=== PATIENT | male | born 1960 | race Caucasian/White ===

== ENCOUNTER 2016-08-31 05:02 | Emergency (ER) | payer OTHER ==
[2016-08-31] MEDS ORDERED: Sodium Chloride 0.9% 1,000 ML IV ONE (05:10)
[2016-08-31] MEDS ORDERED: Sodium Chloride 0.9% 2.5 ML Syringe FLUSH PRN (05:10)
[2016-08-31] MEDS ORDERED: Sodium Chloride 0.9% 10 ML Syringe FLUSH PRN (05:10)
[2016-08-31 06:00] LABS: CHLORIDE,CL 105 mmol/L (98-110); SODIUM,NA 138 mmol/L (136-146)
--- NOTE | 2016-08-31 06:00 | EDM.PDOC ---
ED HPI GENERAL MEDICAL PROBLEM - General Chief Complaint: Abdominal Pain Stated Complaint: ABDOMINAL PAIN Time Seen by Provider: 08/31/16 05:07 Source of Information: Reports: Patient - History of Present Illness INITIAL COMMENTS - FREE TEXT/NARRATIVE: History of present illness: []Patient awoke at 2 AM with severe sharp left lower quadrant pain. He states he has bilateral hernias and always has some pain in the area that this is different. Patient also has a history of prostatitis and diverticulitis and states that it feels similar to diverticulitis. He states he feels pressure in his rectum but denies any difficulty urinating or blood in his urine. Eyes any fevers, chills, nausea or vomiting. Review of systems: As per history of present illness and below otherwise all systems reviewed and negative. Past medical history: As per history of present illness and as reviewed below otherwise noncontributory. Surgical history: As per history of present illness and as reviewed below otherwise noncontributory. Social history: No reported history of drug or alcohol abuse. Family history: As per history of present illness and as reviewed below otherwise noncontributory. Physical exam: General: Well developed, well nourished in NAD HEENT: Atraumatic, normocephalic, pupils reactive, negative for conjunctival pallor or scleral icterus, mucous membranes moist, throat clear, neck supple, nontender, trachea midline. Lungs: Clear to auscultation, breath sounds equal bilaterally, chest nontender. Heart: S1S2, regular, negative for clicks, rubs, or JVD. Abdomen: Soft, nondistended, tender in the left lower quadrant inguinal area out rebound or guarding there is no palpable mass. Negative for masses or hepatosplenomegaly. Negative for costovertebral tenderness. No hernia appreciated on exam Pelvis: Stable nontender. Genitourinary: Deferred. Rectal: Guaiac-negative no prostate tenderness or bogginess Extremities: Atraumatic, negative for cords or calf pain. Neurovascular unremarkable. Neuro: Awake, alert, oriented. Cranial nerves II through XII unremarkable. Cerebellum unremarkable. Motor and sensory unremarkable throughout. Exam nonfocal. Diagnostics: []Labs were done patient has an elevated white count 10,000 without a shift chemistries are normal except for lipase which is elevated at 171. Patient does not have the left upper quadrant pain on exam. CT shows diverticulosis without diverticulitis or abscess, no kidney stones were extracted uropathy. Therapeutics: []Patient was hydrated and given Toradol for pain Impression: []Left lower quadrant pain unclear etiology possible hernia Plan: []Follow-up with general surgery, tramadol for pain return if any symptoms change or worsen. Definitive disposition and diagnosis as appropriate pending reevaluation and review of above. Abdomen Pain Score (Numeric/FACES): 7 - Related Data Allergies Allergy/AdvReac Type Severity Reaction Status Date / Time Latex, Natural Rubber Allergy Blisters Verified 08/31/16 06:09 Home Meds: Home Meds Hydrochlorothiazide 50 mg PO DAILY 08/31/16 [History] Losartan [Cozaar] 50 mg PO DAILY 08/31/16 [History] Meloxicam 15 mg PO DAILY 08/31/16 [History] Past Medical History HEENT History: Reports: Impaired Vision Other HEENT History: wears glasses Cardiovascular History: Reports: Hypertension Respiratory History: Reports: None Gastrointestinal History: Reports: GERD Genitourinary History: Reports: None Musculoskeletal History: Reports: Arthritis, Back Pain, Chronic, Fracture Other Musculoskeletal History: arthritis in hands, hx of fx right leg and hands Neurological History: Reports: None Psychiatric History: Reports: None Endocrine/Metabolic History: Reports: Obesity/BMI 30+ Hematologic History: Reports: None Immunologic History: Reports: None Oncologic (Cancer) History: Reports: None Dermatologic History: Reports: None - Infectious Disease History Infectious Disease History: Reports: None - Past Surgical History Head Surgeries/Procedures: Reports: None Cardiovascular Surgical History: Reports: None Respiratory Surgical History: Reports: None GI Surgical History: Reports: Hernia, Inguinal Male Surgical History: Reports: Other (See Below) Other Male Surgeries/Procedures: testicle cyst removal Endocrine Surgical History: Reports: None Neurological Surgical History: Reports: None Oncologic Surgical History: Reports: None Dermatological Surgical History: Reports: None Social & Family History - Family History Family Medical History: Noncontributory - Tobacco Use Smoking Status *Q: Current Every Day Smoker Years of Tobacco use: 40 Packs/Tins Daily: 1.5 - Caffeine Use Caffeine Use: Reports: Coffee - Recreational Drug Use Recreational Drug Use: No ED ROS GENERAL - Review of Systems Review Of Systems: See Below (See history of present illness) ED EXAM, GI/ABD - Physical Exam Exam: See Below (See history of present illness) Course - Vital Signs Last Recorded V/S: Last Vital Signs Temp 36.4 C 08/31/16 05:46 Pulse 84 08/31/16 05:46 Resp 18 08/31/16 05:46 BP 148/92 H 08/31/16 05:46 Pulse Ox 96 08/31/16 05:46 - Orders/Labs/Meds Orders: Active Orders 24 hr Category Date Time Status Abdomen Pelvis w Cont [CT] Stat Exams 08/31/16 06:06 Taken Sodium Chloride 0.9% [Saline Flush] Med 08/31/16 05:10 Active 10 ml FLUSH ASDIRECTED PRN Sodium Chloride 0.9% [Saline Flush] Med 08/31/16 05:10 Active 2.5 ml FLUSH ASDIRECTED PRN Saline Lock Insert [OM.PC] Stat Oth 08/31/16 05:10 Ordered Medication Orders Sodium Chloride (Saline Flush) 10 ml FLUSH ASDIRECTED PRN PRN Reason: Keep Vein Open Last Admin: 08/31/16 05:56 Dose: 10 ml Sodium Chloride (Saline Flush) 2.5 ml FLUSH ASDIRECTED PRN PRN Reason: Keep Vein Open Last Admin: 08/31/16 05:57 Dose: 2.5 ml Labs: Laboratory Tests 08/31/16 08/31/16 08/31/16 Range/Units 05:31 05:31 05:54 WBC 14.05 H (4.0-11.0) K/uL RBC 4.69 (4.50-5.90) M/uL Hgb 15.6 (13.0-17.0) g/dL Hct 44.2 (38.0-50.0) % MCV 94.2 (80.0-98.0) fL MCH 33.3 H (27.0-32.0) pg MCHC 35.3 (31.0-37.0) g/dL RDW Std Deviation 43.3 (28.0-62.0) fl RDW Coeff of Zhen 13 (11.0-15.0) % Plt Count 257 (150-400) K/uL MPV 9.50 (7.40-12.00) fL Neut % (Auto) 74.4 (48.0-80.0) % Lymph % (Auto) 14.9 L (16.0-40.0) % [place] % (Auto) 10.2 (0.0-15.0) % Eos % (Auto) 0.4 (0.0-7.0) % Baso % (Auto) 0.1 (0.0-1.5) % Neut # (Auto) 10.4 H (1.4-5.7) K/uL Lymph # (Auto) 2.1 (0.6-2.4) K/uL [place] # (Auto) 1.4 H (0.0-0.8) K/uL Eos # (Auto) 0.1 (0.0-0.7) K/uL Baso # (Auto) 0.0 (0.0-0.1) K/uL Nucleated RBC % 0.0 /100WBC Nucleated RBCs # 0 K/uL Sodium 138 (136-146) mmol/L Potassium 4.0 (3.5-5.1) mmol/L Chloride 105 (98-110) mmol/L Carbon Dioxide 25 (21-31) mmol/L BUN 24 H (6.0-23.0) mg/dL Creatinine 1.2 (0.6-1.5) mg/dL Est Cr Clr Drug Dosing 71.82 mL/min Estimated GFR (MDRD) > 60.0 ml/min Glucose 126 H (60-110) mg/dL Calcium 9.2 (8.8-10.8) mg/dL Total Bilirubin 0.3 (0.1-1.5) mg/dL AST 26 (5-40) IU/L ALT 42 (8-54) IU/L Alkaline Phosphatase 70 (40-150) Total Protein 7.0 (6.0-8.0) g/dL Albumin 4.2 (3.5-5.0) g/dL Globulin 2.8 (2.0-3.5) g/dL Albumin/Globulin Ratio 1.5 (1.3-2.8) Lipase 171 H (7-80) U/L Urine Color YELLOW Urine Appearance CLEAR Urine pH 6.0 (5.0-8.0) Ur Specific [place] <= 1.005 (1.001-1.035) Urine Protein NEGATIVE (NEGATIVE) mg/dL Urine Glucose (UA) NEGATIVE (NEGATIVE) mg/dL Urine Ketones NEGATIVE (NEGATIVE) mg/dL Urine Occult Blood TRACE-INTACT (NEGATIVE) Urine Nitrite NEGATIVE (NEGATIVE) Urine Bilirubin NEGATIVE (NEGATIVE) Urine Urobilinogen 0.2 (<2.0) EU/dL Ur Leukocyte Esterase NEGATIVE (NEGATIVE) Urine RBC 0-1 (0-2/HPF) Urine WBC 0-1 (0-5/HPF) Ur Epithelial Cells RARE (NONE-FEW) Urine Bacteria RARE (NEGATIVE) Meds: Medications Generic Name Dose Route Start Last Admin Trade Name Freq PRN Reason Stop Dose Admin Sodium Chloride 10 ml 08/31/16 05:10 08/31/16 05:56 Saline Flush FLUSH 10 ml ASDIRECTED PRN Administration Keep Vein Open Sodium Chloride 2.5 ml 08/31/16 05:10 08/31/16 05:57 Saline Flush FLUSH 2.5 ml ASDIRECTED PRN Administration Keep Vein Open Discontinued Medications Generic Name Dose Route Start Last Admin Trade Name Freq PRN Reason Stop Dose Admin Sodium Chloride 1,000 mls @ 999 mls/hr 08/31/16 05:10 08/31/16 05:56 Normal Saline IV 08/31/16 06:10 999 mls/hr .Bolus ONE Administration Iopamidol 100 ml 08/31/16 06:43 08/31/16 06:43 Isovue-370 (76%) IVPUSH 08/31/16 06:44 100 ml ONETIME STA Administration Ketorolac Tromethamine 30 mg 08/31/16 07:02 08/31/16 07:22 Toradol IM 08/31/16 07:03 30 mg ONETIME ONE Administration Departure - Departure Time of Disposition: 07:32 Disposition: Home, Self-Care 01 Condition: Good Clinical Impression: Left lower quadrant pain - Discharge Information Referrals: PCP,None [Primary Care Provider] - Forms: ED Department Discharge Additional Instructions: The following information is given to patients seen in the emergency department who are being discharged to home. This information is to outline your options for follow-up care. We provide all patients seen in our emergency department with a follow-up referral. The need for follow-up, as well as the timing and circumstances, are variable depending upon the specifics of your emergency department visit. If you don't have a primary care physician on staff, we will provide you with a referral. We always advise you to contact your personal physician following an emergency department visit to inform them of the circumstance of the visit and for follow-up with them and/or the need for any referrals to a consulting specialist. The emergency department will also refer you to a specialist when appropriate. This referral assures that you have the opportunity for follow-up care with a specialist. All of these measure are taken in an effort to provide you with optimal care, which includes your follow-up. Under all circumstances we always encourage you to contact your private physician who remains a resource for coordinating your care. When calling for follow-up care, please make the office aware that this follow-up is from your recent emergency room visit. If for any reason you are refused follow-up, please contact the [facility] Emergency Department at and asked to speak to the emergency department charge nurse. Tramadol for pain follow-up with general surgery for evaluation of possible herniorrhaphy on the right and evaluation of left lower quadrant pain with unclear etiology here in the ED workup [facility] Specialty [facility] - General Surgery Professional Building [address] [place] [address], [address] [place] [address] - My Orders Last 24 Hours: My Active Orders 08/31/16 05:10 Sodium Chloride 0.9% [Saline Flush] 10 ml FLUSH ASDIRECTED PRN Sodium Chloride 0.9% [Saline Flush] 2.5 ml FLUSH ASDIRECTED PRN Saline Lock Insert [OM.PC] Stat 08/31/16 06:06 Abdomen Pelvis w Cont [CT] Stat - Assessment/Plan Last 24 Hours: My Active Orders 08/31/16 05:10 Sodium Chloride 0.9% [Saline Flush] 10 ml FLUSH ASDIRECTED PRN Sodium Chloride 0.9% [Saline Flush] 2.5 ml FLUSH ASDIRECTED PRN Saline Lock Insert [OM.PC] Stat 08/31/16 06:06 Abdomen Pelvis w Cont [CT] Stat
[2016-08-31] MEDS ORDERED: Iopamidol 755 Mg/ML 100 ML Bottle IVPUSH STA (06:43)
[2016-08-31] MEDS ORDERED: Ketorolac 30 MG/ML SDV IM ONE (07:02)
[2016-08-31 07:56] VITALS: BP 170/95
--- NOTE | 2016-08-31 13:17 | CT ---
EXAM DATE: 08/31/16 PATIENT'S AGE: 56 Patient: CARMELO JACKSON Facility: [place], [place] Site . Site : 1960 Study: CT Abdomen/Pelvis W CONT [id number]/18/2017 6:47:26 AM Ordering Physician: Randell Baltazar Final Report: INDICATION: Left lower quadrant abdominal pain since the morning. Comparison: CT abdomen and pelvis without and with intravenous contrast August 25, 2016. Technique: CT abdomen and pelvis with intravenous contrast; no oral contrast; coronal and sagittal reformats. Findings: No abnormal intra pulmonary nodular densities through the lung bases .no evidence of pleural effusion. Normal size cardiac silhouette without any evidence of pericardial effusion. No focal hepatic or splenic pathology. Fatty infiltration of the liver. 2.2 x 1.5 cm cyst identified involving segment 4 of the liver. No splenic pathology. No pancreatic pathology. No peripancreatic inflammatory changes. No evidence of pancreatic ductal dilatation. No calcifications identified within the pancreas. Status post cholecystectomy. Small periportal lymph nodes identified stable in appearance. No adrenal pathology. Symmetric perfusion of both the kidneys without any obstructive uropathy or perinephric pathology. No retroperitoneal lymphadenopathy. No CT evidence of diverticulitis or abscess involving the colon. Diverticulosis of the sigmoid colon. No pneumoperitoneum. CT study of the pelvis is unremarkable. The appendix is not clearly visualized; no inflammatory changes in the right lower quadrant of the abdomen. Impression: 1. Benign cyst in the liver. 2. Fatty infiltration of the liver. 3. Status post cholecystectomy. 4. Diverticulosis sigmoid colon without any CT evidence of diverticulitis or abscess. 5. No kidney stones or obstructive uropathy. 6. Fatty liver. Please note that all CT scans at this facility use dose modulation, iterative reconstruction, and/or weight-based dosing when appropriate to reduce radiation dose to as low as reasonably achievable. Dictated by Hans Garcia MD @ Aug 31 2016 7:03AM (Electronic Signature) Report Signed by Proxy. GARY
== END 2016-08-31 07:57 | disposition home or self-care (01) ==
LOC: MW.ED 05:02
DX: R10.32 Left lower quadrant pain (principal); I10 Essential (primary) hypertension; F17.210 Nicotine dependence, cigarettes, uncomplicated; K21.9 Gastro-esophageal reflux disease without esophagitis; E66.9 Obesity, unspecified; Z91.040 Latex allergy status; Z79.899 Other long term (current) drug therapy; Z68.35 Body mass index [BMI] 35.0-35.9, adult
CPT/HCPCS: 36415; 74177; 80053; 81001; 82272; 83690; 85025; 96360; 96372; 99284; J1885; J7040; Q9967

== ENCOUNTER 2016-09-01 19:54 | Emergency (ER) | payer OTHER ==
--- NOTE | 2016-09-01 20:34 | EDM.PDOC ---
ED HPI GENERAL MEDICAL PROBLEM - General Chief Complaint: Gastrointestinal Problem Stated Complaint: PAIN IN RECTUM Time Seen by Provider: 09/01/16 20:27 Source of Information: Reports: Patient History Limitations: Reports: No Limitations - History of Present Illness INITIAL COMMENTS - FREE TEXT/NARRATIVE: HISTORY AND PHYSICAL: []56-year-old male presenting with rectal pain History of Present Illness: []Patient was seen yesterday for what his suspicion was having a hernia and this was ruled out Today pain has appeared in the rectal area. No blood in the stool Review of Systems: As per history of present illness and below otherwise all systems reviewed and negative. Past medical history: As per history of present illness and as reviewed below otherwise noncontributory. Surgical history: As per history of present illness and as reviewed below otherwise noncontributory. Social history: No reported history of drug or alcohol abuse. Family history: As per history of present illness and as reviewed below otherwise noncontributory. Physical exam: Alert and oriented and answers questions appropriately HEENT: Atraumatic, normocehpalic, pupils reactive, negative for conjunctival pallor or scleral icterus, mucous membranes moist, throat clear, neck supple, nontender, trachea midline. Lungs: Clear to auscultation, breath sounds equal bilaterally, chest non tender. Heart: S1S2, regular, negative for clicks, rubs, or JVD. Abdomen: Soft, nondistended, nontender. Negative for masses or hepatossplenmegaly. Negative for costovertebral tenderness. Pelvis: Stable nontender. Genitourinary: Deferred. Rectal: [place] tissue present and tender upon light palpation Extremities: Atraumatic, negative for cords or calf pain. Neurovascular unremarkable. Neuro: Awake, alert, oriented. Cranial nerves II through XII unremarkable. Cerebellum unremarkable. Motor and sensory unremarkable throughout. Exam nonfocal. Diagnostics: [] Therapeutics: [] Impression: [Hemorrhoidal tissue/rectal pain] Plan: [Home Proctocort HC] Definitive disposition and diagnosis as appropriate pending reevaluation and review of above. Onset: Sudden Duration: Day(s):, Getting Worse Location: Reports: Other (rectum) Quality: Reports: Burning, Stabbing Severity: Moderate Improves with: Reports: None Worsens with: Reports: None Rectal Pain Score (Numeric/FACES): 8 - Related Data Allergies Allergy/AdvReac Type Severity Reaction Status Date / Time Latex, Natural Rubber Allergy Blisters Verified 09/01/16 20:10 Home Meds: Home Meds Hydrochlorothiazide 50 mg PO DAILY 08/31/16 [History] Losartan [Cozaar] 50 mg PO DAILY 08/31/16 [History] Meloxicam 15 mg PO DAILY 08/31/16 [History] traMADol [Ultram] 50 mg PO Q8H PRN #12 tablet 08/31/16 [Rx] Hydrocortisone [Proctocort] 28.35 gm RC QID PRN #1 cream..g. 09/01/16 [Rx] Past Medical History HEENT History: Reports: Impaired Vision Other HEENT History: wears glasses Cardiovascular History: Reports: Hypertension Respiratory History: Reports: None Gastrointestinal History: Reports: GERD Genitourinary History: Reports: None Musculoskeletal History: Reports: Arthritis, Back Pain, Chronic, Fracture Other Musculoskeletal History: arthritis in hands, hx of fx right leg and hands Neurological History: Reports: None Psychiatric History: Reports: None Endocrine/Metabolic History: Reports: Obesity/BMI 30+ Hematologic History: Reports: None Immunologic History: Reports: None Oncologic (Cancer) History: Reports: None Dermatologic History: Reports: None - Infectious Disease History Infectious Disease History: Reports: Influenza - Past Surgical History Head Surgeries/Procedures: Reports: None Cardiovascular Surgical History: Reports: None Respiratory Surgical History: Reports: None GI Surgical History: Reports: Hernia, Inguinal Male Surgical History: Reports: Other (See Below) Other Male Surgeries/Procedures: testicle cyst removal Endocrine Surgical History: Reports: None Neurological Surgical History: Reports: None Oncologic Surgical History: Reports: None Dermatological Surgical History: Reports: None Social & Family History - Family History Family Medical History: Noncontributory - Tobacco Use Smoking Status *Q: Current Every Day Smoker Years of Tobacco use: 40 Packs/Tins Daily: 1.5 - Caffeine Use Caffeine Use: Reports: Coffee - Recreational Drug Use Recreational Drug Use: No ED ROS GENERAL - Review of Systems Review Of Systems: ROS reveals no pertinent complaints other than HPI. ED EXAM, RENAL/ - Physical Exam Exam: See Below (See dictation) Course - Vital Signs Last Recorded V/S: Last Vital Signs Temp 36.4 C 09/01/16 20:10 Pulse 110 H 09/01/16 20:10 Resp 20 09/01/16 20:10 BP 143/85 H 09/01/16 20:10 Pulse Ox 98 09/01/16 20:10 Departure - Departure Time of Disposition: 20:30 Disposition: Home, Self-Care 01 Condition: Good Clinical Impression: Hemorrhoids, external - Discharge Information Prescriptions: Hydrocortisone [Proctocort] 28.35 gm RC QID PRN #1 cream..g. PRN Reason: Pain/Fever Forms: ED Department Discharge
== END 2016-09-01 20:38 | disposition home or self-care (01) ==
LOC: MW.ED 19:54
CPT/HCPCS: 99282; 99283

== ENCOUNTER 2016-09-06 06:53 | Emergency (ER) | payer OTHER ==
[2016-09-06] MEDS ORDERED: Morphine 2 MG/ML Syringe IVPUSH ONE (07:28)
--- NOTE | 2016-09-06 07:53 | EDM.PDOC ---
ED HPI GENERAL MEDICAL PROBLEM - General Chief Complaint: General Stated Complaint: FOLLOW UP/PAIN Time Seen by Provider: 09/06/16 06:55 Source of Information: Reports: Patient History Limitations: Reports: No Limitations - History of Present Illness INITIAL COMMENTS - FREE TEXT/NARRATIVE: History of present illness: []Patient complains of rectal pain. He has been seen here twice in the last week once with inguinal pain and the second with rectal pain. Patient awoke this morning and felt a hard lump on his left buttock cheek near his anus that is very tender. He states this was not there previously, although he has had rectal tenderness. He denies any fevers, chills, nausea or vomiting. He states that the rectal area hurts when he urinates. Review of systems: As per history of present illness and below otherwise all systems reviewed and negative. Past medical history: As per history of present illness and as reviewed below otherwise noncontributory. Surgical history: As per history of present illness and as reviewed below otherwise noncontributory. Social history: No reported history of drug or alcohol abuse. Family history: As per history of present illness and as reviewed below otherwise noncontributory. Physical exam: General: Well developed, well nourished in NAD HEENT: Atraumatic, normocephalic, pupils reactive, negative for conjunctival pallor or scleral icterus, mucous membranes moist, throat clear, neck supple, nontender, trachea midline. Lungs: Clear to auscultation, breath sounds equal bilaterally, chest nontender. Heart: S1S2, regular, negative for clicks, rubs, or JVD. Abdomen: Soft, nondistended, nontender. Negative for masses or hepatosplenomegaly. Negative for costovertebral tenderness. Pelvis: Stable nontender. Genitourinary: Deferred. Rectal: There is a 4 cm x 2 cm area of erythema and induration on his left perirectal area that is extending into his perineum. He has no testicular pain. Extremities: Atraumatic, negative for cords or calf pain. Neurovascular unremarkable. Neuro: Awake, alert, oriented. Cranial nerves II through XII unremarkable. Cerebellum unremarkable. Motor and sensory unremarkable throughout. Exam nonfocal. Diagnostics: []Labs ordered shows elevated white count 15k otherwise normal Therapeutics: []Patient was given pain medicine Impression: []Perirectal abscess Plan: []I consulted Dr. Gomez after doing patients exam as this patient has an appointment with him in the office at [address] Gomez requested he remain nothing by mouth and keep his office appointment this afternoon. Definitive disposition and diagnosis as appropriate pending reevaluation and review of above. rectum Pain Score (Numeric/FACES): 9 - Related Data Allergies Allergy/AdvReac Type Severity Reaction Status Date / Time Latex, Natural Rubber Allergy Blisters Verified 09/06/16 07:03 Home Meds: Home Meds Hydrochlorothiazide 50 mg PO DAILY 08/31/16 [History] Losartan [Cozaar] 50 mg PO DAILY 08/31/16 [History] Meloxicam 15 mg PO DAILY 08/31/16 [History] traMADol [Ultram] 50 mg PO Q8H PRN #12 tablet 08/31/16 [Rx] Hydrocortisone [Proctocort] 28.35 gm RC QID PRN #1 cream..g. 09/01/16 [Rx] Past Medical History HEENT History: Reports: Impaired Vision Other HEENT History: wears glasses Cardiovascular History: Reports: Hypertension Respiratory History: Reports: None Gastrointestinal History: Reports: GERD Genitourinary History: Reports: None Musculoskeletal History: Reports: Arthritis, Back Pain, Chronic, Fracture Other Musculoskeletal History: arthritis in hands, hx of fx right leg and hands Neurological History: Reports: None Psychiatric History: Reports: None Endocrine/Metabolic History: Reports: Obesity/BMI 30+ Hematologic History: Reports: None Immunologic History: Reports: None Oncologic (Cancer) History: Reports: None Dermatologic History: Reports: None - Infectious Disease History Infectious Disease History: Reports: Influenza - Past Surgical History Head Surgeries/Procedures: Reports: None Cardiovascular Surgical History: Reports: None Respiratory Surgical History: Reports: None GI Surgical History: Reports: Hernia, Inguinal Male Surgical History: Reports: Other (See Below) Other Male Surgeries/Procedures: testicle cyst removal Endocrine Surgical History: Reports: None Neurological Surgical History: Reports: None Oncologic Surgical History: Reports: None Dermatological Surgical History: Reports: None Social & Family History - Family History Family Medical History: Noncontributory - Tobacco Use Smoking Status *Q: Current Every Day Smoker Years of Tobacco use: 40 Packs/Tins Daily: 1 - Caffeine Use Caffeine Use: Reports: Coffee Caffeine Use Comment: 3 cups a daily - Recreational Drug Use Recreational Drug Use: No ED ROS GENERAL - Review of Systems Review Of Systems: See Below ED EXAM, GENERAL - Physical Exam Exam: See Below (See history of present illness) Course - Vital Signs Last Recorded V/S: Last Vital Signs Temp 36.1 C 09/06/16 07:06 Pulse 91 09/06/16 08:50 Resp 18 09/06/16 08:50 BP 145/90 H 09/06/16 08:50 Pulse Ox 97 09/06/16 08:50 - Orders/Labs/Meds Orders: Active Orders 24 hr Category Date Time Status CULTURE BLOOD [BC] Stat Lab 09/06/16 07:35 Received CULTURE BLOOD [BC] Stat Lab 09/06/16 07:47 Received Blood Culture x2 Reflex Set [OM.PC] Stat Oth 09/06/16 07:29 Ordered Saline Lock Insert [OM.PC] Stat Oth 09/06/16 07:28 Ordered Labs: Laboratory Tests 09/06/16 09/06/16 09/06/16 Range/Units 07:47 07:47 07:47 WBC 15.11 H (4.0-11.0) K/uL RBC 4.92 (4.50-5.90) M/uL Hgb 16.4 (13.0-17.0) g/dL Hct 45.2 (38.0-50.0) % MCV 91.9 (80.0-98.0) fL MCH 33.3 H (27.0-32.0) pg MCHC 36.3 (31.0-37.0) g/dL RDW Std Deviation 40.1 (28.0-62.0) fl RDW Coeff of Zhen 12 (11.0-15.0) % Plt Count 292 (150-400) K/uL MPV 9.50 (7.40-12.00) fL Neut % (Auto) 77.3 (48.0-80.0) % Lymph % (Auto) 10.9 L (16.0-40.0) % [place] % (Auto) 11.6 (0.0-15.0) % Eos % (Auto) 0.1 (0.0-7.0) % Baso % (Auto) 0.1 (0.0-1.5) % Neut # (Auto) 11.7 H (1.4-5.7) K/uL Lymph # (Auto) 1.6 (0.6-2.4) K/uL [place] # (Auto) 1.8 H (0.0-0.8) K/uL Eos # (Auto) 0.0 (0.0-0.7) K/uL Baso # (Auto) 0.0 (0.0-0.1) K/uL Nucleated RBC % 0.0 /100WBC Nucleated RBCs # 0 K/uL INR 1.04 (0.86-1.11) APTT 32.6 H (18.6-31.3) SEC Lactate (0.20-2.00) mmol/L Sodium 135 L (136-146) mmol/L Potassium 3.2 L (3.5-5.1) mmol/L Chloride 99 (98-110) mmol/L Carbon Dioxide 24 (21-31) mmol/L BUN 17 (6.0-23.0) mg/dL Creatinine 1.1 (0.6-1.5) mg/dL Est Cr Clr Drug Dosing 78.35 mL/min Estimated GFR (MDRD) > 60.0 ml/min Glucose 119 H (60-110) mg/dL Calcium 9.3 (8.8-10.8) mg/dL 09/06/16 Range/Units 08:19 WBC (4.0-11.0) K/uL RBC (4.50-5.90) M/uL Hgb (13.0-17.0) g/dL Hct (38.0-50.0) % MCV (80.0-98.0) fL MCH (27.0-32.0) pg MCHC (31.0-37.0) g/dL RDW Std Deviation (28.0-62.0) fl RDW Coeff of Zhen (11.0-15.0) % Plt Count (150-400) K/uL MPV (7.40-12.00) fL Neut % (Auto) (48.0-80.0) % Lymph % (Auto) (16.0-40.0) % [place] % (Auto) (0.0-15.0) % Eos % (Auto) (0.0-7.0) % Baso % (Auto) (0.0-1.5) % Neut # (Auto) (1.4-5.7) K/uL Lymph # (Auto) (0.6-2.4) K/uL [place] # (Auto) (0.0-0.8) K/uL Eos # (Auto) (0.0-0.7) K/uL Baso # (Auto) (0.0-0.1) K/uL Nucleated RBC % /100WBC Nucleated RBCs # K/uL INR (0.86-1.11) APTT (18.6-31.3) SEC Lactate 1.6 (0.20-2.00) mmol/L Sodium (136-146) mmol/L Potassium (3.5-5.1) mmol/L Chloride (98-110) mmol/L Carbon Dioxide (21-31) mmol/L BUN (6.0-23.0) mg/dL Creatinine (0.6-1.5) mg/dL Est Cr Clr Drug Dosing mL/min Estimated GFR (MDRD) ml/min Glucose (60-110) mg/dL Calcium (8.8-10.8) mg/dL Meds: Medications Discontinued Medications Generic Name Dose Route Start Last Admin Trade Name Freq PRN Reason Stop Dose Admin Morphine Sulfate 2 mg 09/06/16 07:28 09/06/16 07:49 Morphine IVPUSH 09/06/16 07:29 2 mg ONETIME ONE Administration Departure - Departure Time of Disposition: 11:44 Disposition: Home, Self-Care 01 Condition: Good Clinical Impression: Perirectal abscess - Discharge Information Instructions: Perirectal Abscess Referrals: Miguel Gomez MD [Physician] - PCP,None [Primary Care Provider] - Forms: ED Department Discharge Care Plan Goals: Follow Up Appointment with Dr. Gomez at 10 am today in the [facility]. - My Orders Last 24 Hours: My Active Orders 09/06/16 07:28 Saline Lock Insert [OM.PC] Stat 09/06/16 07:29 Blood Culture x2 Reflex Set [OM.PC] Stat 09/06/16 07:35 CULTURE BLOOD [BC] Stat 09/06/16 07:47 CULTURE BLOOD [BC] Stat - Assessment/Plan Last 24 Hours: My Active Orders 09/06/16 07:28 Saline Lock Insert [OM.PC] Stat 09/06/16 07:29 Blood Culture x2 Reflex Set [OM.PC] Stat 09/06/16 07:35 CULTURE BLOOD [BC] Stat 09/06/16 07:47 CULTURE BLOOD [BC] Stat
[2016-09-06 08:24] LABS: CHLORIDE,CL 99 mmol/L (98-110); SODIUM,NA 135 mmol/L (136-146)
[2016-09-06 08:56] VITALS: BP 145/90
== END 2016-09-06 08:50 | disposition home or self-care (01) ==
LOC: MW.ED 06:53
DX: K61.1 Rectal abscess (principal); I10 Essential (primary) hypertension; K21.9 Gastro-esophageal reflux disease without esophagitis; E66.9 Obesity, unspecified; F17.210 Nicotine dependence, cigarettes, uncomplicated; Z91.040 Latex allergy status; Z79.899 Other long term (current) drug therapy
CPT/HCPCS: 36415; 80048; 83605; 85025; 85610; 85730; 87040; 96374; 99283; J2270; 99284

== ENCOUNTER 2016-09-09 11:33 | Day surgery (SDC) | payer OTHER ==
[~2016-09-09 11:33] MED LIST: Bupivacaine 0.25%/EPINEPHrine 1:200,000 10 ML SDV ONE; Lactated Ringers 1,000 ML IV SCH
--- NOTE | 2016-09-09 12:25 | PCM.PREANE ---
Preanesthetic Assessment - Anesthesia/Transfusion/Family Hx Anesthesia History: Prior Anesthesia Without Reaction Family History of Anesthesia Reaction: No Transfusion History: No Prior Transfusion(s) Intubation History: Unknown - Review of Systems General: No Symptoms Pulmonary: No Symptoms Cardiovascular: No Symptoms Gastrointestinal: No Symptoms Neurological: No Symptoms Other: Reports: None - Physical Assessment O2 Sat by Pulse Oximetry: 99 Respiratory Rate: 16 Vital Signs: Last Vital Signs Temp 36.0 C 09/09/16 12:18 Pulse 101 H 09/09/16 12:18 Resp 16 09/09/16 12:18 BP 142/85 H 09/09/16 12:18 Pulse Ox 99 09/09/16 12:18 Height: 1.78 m Weight: 108 kg ASA Class: 2 Mental Status: Alert & Oriented x3 Airway Class: Mallampati = 2 Dentition: Reports: Normal Dentition Thyro-Mental Finger Breadths: 3 Mouth Opening Finger Breadths: 3 ROM/Head Extension: Full Lungs: Clear to Auscultation, Normal Respiratory Effort Cardiovascular: Regular Rate, Regular Rhythm - Allergies Allergies/Adverse Reactions: Allergies Allergy/AdvReac Type Severity Reaction Status Date / Time Latex, Natural Rubber Allergy Blisters Verified 09/06/16 07:03 - Blood Blood Available: No - Anesthesia Plan Pre-Op Medication Ordered: None - Acknowledgements Anesthesia Type Planned: General Anesthesia Pt an Appropriate Candidate for the Planned Anesthesia: Yes Alternatives and Risks of Anesthesia Discussed w Pt/Guardian: Yes Pt/Guardian Understands and Agrees with Anesthesia Plan: Yes PreAnesthesia Questionnaire HEENT History: Reports: Impaired Vision Other HEENT History: wears glasses Cardiovascular History: Reports: Hypertension, Other (See Below) (h/o high cholersterol, now ok without medications, questionable h/o TIA with weakness in lt. arm> 10 years ago) Respiratory History: Reports: None Gastrointestinal History: Reports: None Genitourinary History: Reports: BPH Musculoskeletal History: Reports: Arthritis, Back Pain, Chronic, Fracture Other Musculoskeletal History: arthritis in hands, hx of fx right leg and hands Neurological History: Reports: None Psychiatric History: Reports: None Endocrine/Metabolic History: Reports: Obesity/BMI 30+ Hematologic History: Reports: None Immunologic History: Reports: None Oncologic (Cancer) History: Reports: None Dermatologic History: Reports: Other (See Below) (perirectal abscess) - Infectious Disease History Infectious Disease History: Reports: Influenza - Past Surgical History Head Surgeries/Procedures: Reports: None HEENT Surgical History: Reports: Oral Surgery Cardiovascular Surgical History: Reports: None Respiratory Surgical History: Reports: None GI Surgical History: Reports: Cholecystectomy, Hernia, Inguinal (rt. inguinal hernia x4) Other GI Surgeries/Procedures: inguinal hernia repair x4 Male Surgical History: Reports: Other (See Below) Other Male Surgeries/Procedures: testicle cyst removal Endocrine Surgical History: Reports: None Neurological Surgical History: Reports: None Musculoskeletal Surgical History: Reports: ORIF Other Musculoskeletal Surgeries/Procedures:: ORIF right ankle Oncologic Surgical History: Reports: None Dermatological Surgical History: Reports: None - SUBSTANCE USE Smoking Status *Q: Current Every Day Smoker (1-2 ppd) Tobacco Use Within Last Twelve Months: Cigarettes Recreational Drug Use History: No - HOME MEDS Home Medications: Home Meds Hydrochlorothiazide 50 mg PO DAILY 08/31/16 [History] Losartan [Cozaar] 50 mg PO DAILY 08/31/16 [History] Meloxicam 15 mg PO DAILY 08/31/16 [History] traMADol [Ultram] 50 mg PO Q8H PRN #12 tablet 08/31/16 [Rx] Hydrocortisone [Proctocort] 28.35 gm RC QID PRN #1 cream..g. 09/01/16 [Rx] Clindamycin HCl 300 mg PO QID 09/08/16 [History] oxyCODONE HCl/Acetaminophen [Percocet 5-325 mg Tablet] 1 tab PO ASDIRECTED PRN 09/08/16 [History] - CURRENT (IN HOUSE) MEDS Current Meds: Current Medications Lactated Ringer's (Ringers, Lactated) 1,000 mls @ 125 mls/hr IV ASDIRECTED [facility] Last Admin: 09/09/16 12:16 Dose: 125 mls/hr Lactated Ringer's (Ringers, Lactated) 1,000 mls @ 125 mls/hr IV ASDIRECTED [facility] Discontinued Medications Bupivacaine HCl/Epinephrine Bitart (Marcaine 0.25%/Epinephrine 1:200,000) Confirm Administered Dose 20 ml .ROUTE .STK-MED ONE Stop: 09/09/16 10:11
[2016-09-09] MEDS ORDERED: Propofol 200 MG/20 ML SDV ONE ×2 (12:34→13:55)
[2016-09-09] MEDS ORDERED: Midazolam 1 MG/ML 2 ML SDV ONE (12:34)
[2016-09-09] MEDS ORDERED: fentaNYL 250 MCG/5 ML SDV ONE (12:34)
[2016-09-09] MEDS ORDERED: fentaNYL 100 MCG/2 ML SDV IVPUSH PRN (14:16)
--- NOTE | 2016-09-09 15:05 | PCM.POSTAN ---
POST ANESTHESIA ASSESSMENT - MENTAL STATUS Mental Status: Alert, Oriented - RESPIRATORY Respiratory Status: respiratory rate WNL, Airway Patent, O2 Saturation Stable - CARDIOVASCULAR CV Status: Pulse Rate WNL, Blood Pressure Stable - GASTROINTESTINAL GI Status: No Symptoms - PAIN Pain Score: 3 - POST OP HYDRATION Hydration Status: Adequate & Stable
--- NOTE | 2016-09-09 15:05 | PCM48HPAN ---
Post Anesthesia Note - EVALUATION WITHIN 48HRS OF ANESTHETIC Vital Signs in Normal Range: Yes Patient Participated in Evaluation: Yes Respiratory Function Stable: Yes Airway Patent: Yes Cardiovascular Function Stable: Yes Hydration Status Stable: Yes Pain Control Satisfactory: Yes Nausea and Vomiting Control Satisfactory: Yes Mental Status Recovered: Yes
[2016-09-09 16:00] VITALS: BP 143/80
--- NOTE | 2016-09-09 20:35 | OR ---
SURGEON: Miguel Gomez MD DATE OF PROCEDURE: 09/09/2016 PREOPERATIVE DIAGNOSIS: Perirectal abscess. POSTOPERATIVE DIAGNOSIS: Perirectal abscess. PROCEDURE PERFORMED: Incision and drainage. COMPLICATIONS: None. FINDINGS: Large amount close to about one quarter can of soda of purulent foul-smelling necrotic liquid out from the anal opening at 7 o'clock when in a prone position. PROCEDURE IN DETAIL: The patient was taken to the operating room, placed in a supine position. Upon induction of general endotracheal anesthesia, the patient was repositioned in prone position, and time-out was being called, patient identified, procedure identified, and the patient was then prepped and draped in a sterile fashion. After assessment of appropriate landmark, using an #11 blade a very shallow jere on top of the elevation, which is a 7 o'clock on anal opening and resulted in gush of foul-smelling liquefied necrosis and followed by using surgeon's finger to dislodge all the innoculation, followed extensive irrigation and the wound was packed with 1/2 iodoform gauze and followed appropriate dressing. The patient was then repositioned in the supine position and awakened and extubated and transferred to recovery room in hemodynamically stable condition. The patient tolerated the procedure well. There were no intraoperative complications. Dr. Gomez was present throughout the whole procedure. As always, thank you for the kind referral. LINDA SALGADO /[id number] MTDD
== END 2016-09-09 15:35 | disposition home or self-care (01) ==
LOC: MW.SDS 11:33
PROVIDERS: ATTEND Surgery
PROC: 0D9P0ZZ Drainage of Rectum, Open Approach (ICD-10-PCS; principal; 2016-09-09)
DX: K61.1 Rectal abscess (principal); M19.90 Unspecified osteoarthritis, unspecified site; Z91.040 Latex allergy status; Z79.2 Long term (current) use of antibiotics; Z79.899 Other long term (current) drug therapy; E78.00 Pure hypercholesterolemia, unspecified; Z86.73 Personal history of transient ischemic attack (TIA), and cerebral infarction without residual deficits; Z98.890 Other specified postprocedural states; F17.210 Nicotine dependence, cigarettes, uncomplicated
CPT/HCPCS: 46040; 87070; 87075; 87205; J2250; J3010; J7120; 00902; 87077; 87186; J2704

== ENCOUNTER 2016-09-11 13:10 | Emergency (ER) | payer OTHER ==
[2016-09-11 13:44] VITALS: BP 160/74
== END 2016-09-11 14:05 | disposition left against medical advice (07) ==
LOC: MW.ED 13:10
DX: Z53.21 Procedure and treatment not carried out due to patient leaving prior to being seen by health care provider (principal)

== ENCOUNTER 2016-09-11 22:47 | Emergency (ER) | payer OTHER | END 2016-09-11 22:50 | disposition home or self-care (01) | LOC: MW.ED 22:47 | DX: Z53.21 Procedure and treatment not carried out due to patient leaving prior to being seen by health care provider (principal) ==

== ENCOUNTER 2016-09-25 10:15 | Emergency (ER) | payer OTHER ==
--- NOTE | 2016-09-25 10:45 | EDM.PDOC ---
ED HPI GENERAL MEDICAL PROBLEM - General Chief Complaint: Genitourinary Problem Stated Complaint: PAIN Time Seen by Provider: 09/25/16 10:25 Source of Information: Reports: Patient History Limitations: Reports: No Limitations - History of Present Illness INITIAL COMMENTS - FREE TEXT/NARRATIVE: HISTORY AND PHYSICAL: History of present illness: [Patient comes to the emergency room with complaints of anal pain. He had surgery by Dr. Gomez on September 09 for a perianal abscess and was prescribed clindamycin which he completed on September 22. Feels that he's been doing very well and has been pain-free until he woke up this morning. He states that he woke up this morning with pain in his left anal area near the site of the incision. Dr. Gomez apparently advised him to notify him immediately and resume antibiotics if pain recurred. Dr. Gomez is not on-call this weekend and so patient reports the ER for evaluation. States that the pain is near the area where the previous abscess was located. The pain is similar as it was prior to surgery but less intense. Has not appreciated any significant swelling and has had no drainage from the area. He denies fever and chills. No abdominal pain nausea or vomiting. No body aches, muscle or joint aches or pains.] Review of systems: As per history of present illness and below otherwise all systems reviewed and negative. Past medical history: As per history of present illness and as reviewed below otherwise noncontributory. Surgical history: As per history of present illness and as reviewed below otherwise noncontributory. Social history: No reported history of drug or alcohol abuse. Family history: As per history of present illness and as reviewed below otherwise noncontributory. Physical exam: General: Well developed, Well nourished male in no acute distress. Smells heavily of tobacco smoke. Vitals reviewed by this provider. HEENT: Atraumatic, normocephalic. Rectal: Normal appearing, good sphincter tone. No incision or scarring is appreciated to radial anal folds. No area of fluctuance or apparent abscess. Neuro: Awake, alert, oriented. Motor and sensory unremarkable throughout. Exam nonfocal. Impression: [Rectal pain Status post perianal abscess surgery] Plan: [Dr. Gomez's office notes aren't available for review today. Dr. Gomez is not on-call this weekend. Will treat patient with antibiotic until he can follow-up with Dr. Gomez early next week. Rx written for Augmentin 875 mg #14 take 1 by mouth twice a day with food 0 refills. The patient states that he has pain medication at home. He is in agreement with today's plan. All of his questions are answered and concerns are addressed. Of note, BP improves prior to ER discharge. See vitals. ] Definitive disposition and diagnosis as appropriate pending reevaluation and review of above. Groin Pain Score (Numeric/FACES): 4 - Related Data Allergies Allergy/AdvReac Type Severity Reaction Status Date / Time Latex, Natural Rubber Allergy Blisters Verified 09/11/16 13:41 Home Meds: Home Meds Hydrochlorothiazide 50 mg PO DAILY 08/31/16 [History] Losartan [Cozaar] 50 mg PO DAILY 08/31/16 [History] Meloxicam 15 mg PO DAILY 08/31/16 [History] traMADol [Ultram] 50 mg PO Q8H PRN #12 tablet 08/31/16 [Rx] Hydrocortisone [Proctocort] 28.35 gm RC QID PRN #1 cream..g. 09/01/16 [Rx] Clindamycin HCl 300 mg PO QID 09/08/16 [History] oxyCODONE HCl/Acetaminophen [Percocet 5-325 mg Tablet] 1 tab PO ASDIRECTED PRN 09/08/16 [History] Past Medical History HEENT History: Reports: Impaired Vision Other HEENT History: wears glasses Cardiovascular History: Reports: Hypertension Respiratory History: Reports: None Gastrointestinal History: Reports: None Genitourinary History: Reports: BPH Musculoskeletal History: Reports: Arthritis, Back Pain, Chronic, Fracture Other Musculoskeletal History: arthritis in hands, hx of fx right leg and hands Neurological History: Reports: None Psychiatric History: Reports: None Endocrine/Metabolic History: Reports: Obesity/BMI 30+ Hematologic History: Reports: None Immunologic History: Reports: None Oncologic (Cancer) History: Reports: None Dermatologic History: Reports: Other (See Below) - Infectious Disease History Infectious Disease History: Reports: Influenza - Past Surgical History Head Surgeries/Procedures: Reports: None HEENT Surgical History: Reports: Oral Surgery Cardiovascular Surgical History: Reports: None Respiratory Surgical History: Reports: None GI Surgical History: Reports: Cholecystectomy, Hernia, Inguinal Other GI Surgeries/Procedures: inguinal hernia repair x4 Male Surgical History: Reports: Other (See Below) Other Male Surgeries/Procedures: testicle cyst removal Endocrine Surgical History: Reports: None Neurological Surgical History: Reports: None Musculoskeletal Surgical History: Reports: ORIF Other Musculoskeletal Surgeries/Procedures:: ORIF right ankle Oncologic Surgical History: Reports: None Dermatological Surgical History: Reports: None Social & Family History - Family History Family Medical History: Noncontributory - Tobacco Use Smoking Status *Q: Current Every Day Smoker Years of Tobacco use: 40 Packs/Tins Daily: 1 - Caffeine Use Caffeine Use: Reports: Coffee Caffeine Use Comment: 3 cups a daily - Recreational Drug Use Recreational Drug Use: No ED ROS GENERAL - Review of Systems Review Of Systems: ROS reveals no pertinent complaints other than HPI. ED EXAM, GI/ABD - Physical Exam Exam: See Below Course - Vital Signs Last Recorded V/S: Last Vital Signs Temp 97.6 F 09/25/16 10:55 Pulse 100 09/25/16 10:55 Resp 18 09/25/16 10:55 BP 182/88 H 09/25/16 10:55 Pulse Ox 98 09/25/16 10:55 Departure - Departure Time of Disposition: 10:45 Disposition: Home, Self-Care 01 Condition: Good Clinical Impression: Perirectal abscess - Discharge Information Instructions: Perirectal Abscess Referrals: PCP,None [Primary Care Provider] - Forms: ED Department Discharge Additional Instructions: The following information is given to patients seen in the emergency department who are being discharged to home. This information is to outline your options for follow-up care. We provide all patients seen in our emergency department with a follow-up referral. The need for follow-up, as well as the timing and circumstances, are variable depending upon the specifics of your emergency department visit. If you don't have a primary care physician on staff, we will provide you with a referral. We always advise you to contact your personal physician following an emergency department visit to inform them of the circumstance of the visit and for follow-up with them and/or the need for any referrals to a consulting specialist. The emergency department will also refer you to a specialist when appropriate. This referral assures that you have the opportunity for follow-up care with a specialist. All of these measure are taken in an effort to provide you with optimal care, which includes your follow-up. Under all circumstances we always encourage you to contact your private physician who remains a resource for coordinating your care. When calling for follow-up care, please make the office aware that this follow-up is from your recent emergency room visit. If for any reason you are refused follow-up, please contact the [facility] emergency department at and asked to speak to the emergency department charge nurse. [facility] Special[facility]- General Surgery Professional Building [address] [place] [address], [address] [place] [address] Gomez first thing Tuesday morning to let him know about ER visit and antibiotic prescription. Follow-up as Dr. Gomez requests. Take antibiotics as prescribed. Return to ER as needed as discussed.
[2016-09-25 14:04] VITALS: BP 182/88
== END 2016-09-25 10:56 | disposition home or self-care (01) ==
LOC: MW.ED 10:15
DX: K61.1 Rectal abscess (principal); F17.210 Nicotine dependence, cigarettes, uncomplicated; I10 Essential (primary) hypertension; E66.9 Obesity, unspecified; Z79.899 Other long term (current) drug therapy; Z90.49 Acquired absence of other specified parts of digestive tract; Z68.34 Body mass index [BMI] 34.0-34.9, adult
CPT/HCPCS: 99282

== ENCOUNTER 2017-06-08 15:20 | Emergency (ER) | payer OTHER ==
[2017-06-08] MEDS ORDERED: Diphtheria,Pertussis(Acell),Tetanus Vaccine 0.5 ML Syringe IM ONE (15:34)
[2017-06-08] MEDS ORDERED: Lidocaine 1% 20 ML MDV INJECT ONE (15:35)
--- NOTE | 2017-06-08 15:36 | EDM.PDOC ---
ED HPI GENERAL MEDICAL PROBLEM - General Chief Complaint: Laceration Stated Complaint: LEFT HAND CUT Time Seen by Provider: 06/08/17 15:35 Source of Information: Reports: Patient History Limitations: Reports: No Limitations - History of Present Illness INITIAL COMMENTS - FREE TEXT/NARRATIVE: HISTORY AND PHYSICAL: []56-year-old male presenting with laceration to the palm of his hand of his hand History of Present Illness: []He was ratcheting tarp down and the ratchet handle caught his palm causing a laceration Does Not remember when his last tetanus vaccine was given History of 7 hernia repairs, gallbladder removed Review of Systems: As per history of present illness and below otherwise all systems reviewed and negative. Past medical history: As per history of present illness and as reviewed below otherwise noncontributory. Surgical history: As per history of present illness and as reviewed below otherwise noncontributory. Social history: No reported history of drug or alcohol abuse. Family history: As per history of present illness and as reviewed below otherwise noncontributory. Physical exam: Alert and oriented male answering questions appropriately in full sentences no shortness of breath was noted. HEENT: Atraumatic, normocehpalic, pupils reactive, negative for conjunctival pallor or scleral icterus, mucous membranes moist, throat clear, neck supple, nontender, trachea midline. Lungs: Clear to auscultation, breath sounds equal bilaterally, chest non tender. Heart: S1S2, regular, negative for clicks, rubs, or JVD. Abdomen: Soft, nondistended, nontender. Negative for masses or hepatossplenmegaly. Negative for costovertebral tenderness. Pelvis: Stable nontender. Genitourinary: Deferred. Rectal: Deferred Extremities: traumatic injury to palm of right hand. middle of palm with 3 cm laceration. sensation intact. pulse palpable., negative for cords or calf pain. Neurovascular unremarkable. Neuro: Awake, alert, oriented. Cranial nerves II through XII unremarkable. Cerebellum unremarkable. Motor and sensory unremarkable throughout. Exam nonfocal. Lidocaine 1% was injected into the sides of the wound and good anesthesia effect was obtained. Diagnostics: [] Therapeutics: []sutures placed Impression: [] Laceration with repair Plan: []Discharge home Keep area clean and dry Sutures removed in 7-10 days Definitive disposition and diagnosis as appropriate pending reevaluation and review of above. Onset: Today, Sudden left hand laceration Pain Score (Numeric/FACES): 4 - Related Data Allergies Allergy/AdvReac Type Severity Reaction Status Date / Time Latex, Natural Rubber Allergy Blisters Verified 06/08/17 15:30 Home Meds: Home Meds Losartan [Cozaar] 100 mg PO DAILY 08/31/16 [History] Past Medical History HEENT History: Reports: Impaired Vision Other HEENT History: wears glasses Cardiovascular History: Reports: Hypertension Respiratory History: Reports: None Gastrointestinal History: Reports: None Genitourinary History: Reports: BPH Musculoskeletal History: Reports: Arthritis, Back Pain, Chronic, Fracture Other Musculoskeletal History: arthritis in hands, hx of fx right leg and hands Neurological History: Reports: None Psychiatric History: Reports: None Endocrine/Metabolic History: Reports: Obesity/BMI 30+ Hematologic History: Reports: None Immunologic History: Reports: None Oncologic (Cancer) History: Reports: None Dermatologic History: Reports: Other (See Below) - Infectious Disease History Infectious Disease History: Reports: Chicken Pox, Measles - Past Surgical History Head Surgeries/Procedures: Reports: None HEENT Surgical History: Reports: Oral Surgery Cardiovascular Surgical History: Reports: None Respiratory Surgical History: Reports: None GI Surgical History: Reports: Cholecystectomy, Hernia, Inguinal Other GI Surgeries/Procedures: inguinal hernia repair x7 Male Surgical History: Reports: Other (See Below) Other Male Surgeries/Procedures: testicle cyst removal Endocrine Surgical History: Reports: None Neurological Surgical History: Reports: None Musculoskeletal Surgical History: Reports: ORIF Other Musculoskeletal Surgeries/Procedures:: ORIF right ankle Oncologic Surgical History: Reports: None Dermatological Surgical History: Reports: None Social & Family History - Family History Family Medical History: Noncontributory - Tobacco Use Smoking Status *Q: Current Every Day Smoker Years of Tobacco use: 40 Packs/Tins Daily: 1 - Caffeine Use Caffeine Use: Reports: Coffee, Soda Caffeine Use Comment: 3 cups a daily - Recreational Drug Use Recreational Drug Use: No ED ROS GENERAL - Review of Systems Review Of Systems: ROS reveals no pertinent complaints other than HPI. ED EXAM, SKIN/RASH Exam: See Below (see dictation) ED SKIN PROCEDURES - Laceration/Wound Repair Left Hand Lac/Wound length In cm: 3 Appearance: Subcutaneous Distal NVT: Neuro & Vascular Intact, No Tendon Injury Local Anesthesia - Lidocaine (Xylocaine): 1% Plain Local Anesthetic Volume: 5cc Skin Prep: Chlorhexidine (Hibiciens), Saline Exploration/Debridement/Repair: Wound Explored, In a Bloodless Field, Explored to Base, Minimal Debridement Closed with: Sutures Suture Size: 4-0 # of Sutures: 5 Suture Type: Nylon, Interrupted, Simple Drain Placement: No Sterile Dressing Applied: Nurse Tetanus Status Addressed: Yes Complications: No Course - Vital Signs Last Recorded V/S: Last Vital Signs Temp 36.3 C 06/08/17 15:28 Pulse 93 06/08/17 15:28 Resp 18 06/08/17 15:28 BP 173/84 H 06/08/17 15:28 Pulse Ox 95 06/08/17 15:28 - Orders/Labs/Meds Orders: Active Orders 24 hr Category Date Time Status Vaccines to be Administered [RC] PER UNIT ROUTINE Care 06/08/17 15:34 Active Meds: Medications Discontinued Medications Generic Name Dose Route Start Last Admin Trade Name Freq PRN Reason Stop Dose Admin Diphtheria/Tetanus/Acell Pertussis 0.5 ml 06/08/17 15:34 06/08/17 15:57 Adacel IM 06/08/17 15:35 0.5 ml .ONCE ONE Administration Lidocaine HCl 20 ml 06/08/17 15:35 06/08/17 15:41 Xylocaine 1% INJECT 06/08/17 15:36 20 ml ONETIME ONE Administration Departure - Departure Time of Disposition: 16:09 Disposition: Home, Self-Care 01 Condition: Good Clinical Impression: Laceration - Discharge Information Instructions: Laceration Care, Adult, [id number], Stitches, [place], or Adhesive Wound Closure, [id number] Forms: ED Department Discharge Additional Instructions: The following information is given to patients seen in the emergency department who are being discharged to home. This information is to outline your options for follow-up care. We provide all patients seen in our emergency department with a follow-up referral. The need for follow-up, as well as the timing and circumstances, are variable depending upon the specifics of your emergency department visit. If you don't have a primary care physician on staff, we will provide you with a referral. We always advise you to contact your personal physician following an emergency department visit to inform them of the circumstance of the visit and for follow-up with them and/or the need for any referrals to a consulting specialist. The emergency department will also refer you to a specialist when appropriate. This referral assures that you have the opportunity for followup care with a specialist. All of these measure are taken in an effort to provide you with optimal care, which includes your followup. Under all circumstances we always encourage you to contact your private physician who remains a resource for coordinating your care. When calling for followup care, please make the office aware that this follow-up is from your recent emergency room visit. If for any reason you are refused follow-up, please contact the [facility] emergency department at and asked to speak to the emergency department charge nurse. Your laceration was closed with nylon sutures Sutures to be removed in 7 days Keep area clean and dry - My Orders Last 24 Hours: My Active Orders 06/08/17 15:34 Vaccines to be Administered [RC] PER UNIT ROUTINE - Assessment/Plan Last 24 Hours: My Active Orders 06/08/17 15:34 Vaccines to be Administered [RC] PER UNIT ROUTINE
[2017-06-08 16:03] VITALS: BP 173/84
[2017-06-08] MEDS ORDERED: Bacitracin Oint 1 GM U/D Packet TOP ONE (16:13)
== END 2017-06-08 16:22 | disposition home or self-care (01) ==
LOC: MW.ED 15:20
DX: S61.412A Laceration without foreign body of left hand, initial encounter (principal); I10 Essential (primary) hypertension; F17.210 Nicotine dependence, cigarettes, uncomplicated; Z79.899 Other long term (current) drug therapy; Z23 Encounter for immunization; Z91.040 Latex allergy status; W26.8XXA Contact with other sharp object(s), not elsewhere classified, initial encounter
CPT/HCPCS: 90471; 90715; 99282-25

== ENCOUNTER 2017-06-14 16:52 | Emergency (ER) | payer OTHER ==
[2017-06-14 17:13] VITALS: BP 178/110
== END 2017-06-14 17:17 | disposition home or self-care (01) ==
LOC: MW.ED 16:52
DX: S61.412D Laceration without foreign body of left hand, subsequent encounter (principal); W26.8XXD Contact with other sharp object(s), not elsewhere classified, subsequent encounter

== ENCOUNTER 2018-10-27 07:54 | Day surgery (SDC) | payer OTHER ==
[~2018-10-27 07:54] MED LIST changes: -Bupivacaine 0.25%/EPINEPHrine 1:200,000 10 ML SDV ONE
--- NOTE | 2018-10-27 08:19 | PCM.PREANE ---
Preanesthetic Assessment - Anesthesia/Transfusion/Family Hx Anesthesia History: Prior Anesthesia Reaction Other Type of Anesthesia Reaction Comment: only N&V with Cholecystectomy Family History of Anesthesia Reaction: No Transfusion History: No Prior Transfusion(s) Intubation History: Unknown - Review of Systems General: No Symptoms Pulmonary: No Symptoms Cardiovascular: No Symptoms Neurological: No Symptoms Other: Reports: None - Physical Assessment NPO Status Date: 10/26/18 Vital Signs: Last Vital Signs Temp 97.3 F 10/27/18 08:11 Pulse 79 10/27/18 08:11 Resp 15 10/27/18 08:11 BP 139/87 10/27/18 08:11 Pulse Ox 98 10/27/18 08:11 Height: 5 ft 9 in Weight: 117.027 kg ASA Class: 3 Mental Status: Alert & Oriented x3 Airway Class: Mallampati = 2 Dentition: Reports: Normal Dentition ROM/Head Extension: Full Lungs: Clear to Auscultation, Normal Respiratory Effort Cardiovascular: Regular Rate, Regular Rhythm - Allergies Allergies/Adverse Reactions: Allergies Allergy/AdvReac Type Severity Reaction Status Date / Time hydrochlorothiazide Allergy Hives Verified 10/24/18 14:03 Latex, Natural Rubber Allergy Blisters Verified 10/24/18 14:03 lisinopril Allergy Cough Verified 10/24/18 14:03 - Blood Blood Available: No - Anesthesia Plan Pre-Op Medication Ordered: None - Acknowledgements Anesthesia Type Planned: General Anesthesia Pt an Appropriate Candidate for the Planned Anesthesia: Yes Alternatives and Risks of Anesthesia Discussed w Pt/Guardian: Yes Pt/Guardian Understands and Agrees with Anesthesia Plan: Yes Additional Comments: PMH: 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, smoker- 7ekpl10 yrs, heavy alcohol use 14 drinks/week, IBS, HTN PLAN: tiva PreAnesthesia Questionnaire HEENT History: Reports: Macular Degeneration Other HEENT History: Macular degeneration in left eye- no medication, wears glasses Cardiovascular History: Reports: Hypertension Respiratory History: Reports: Pneumonia, Recurrent Gastrointestinal History: Reports: GERD, Irritable Bowel Syndrome Genitourinary History: Reports: Other (See Below) Musculoskeletal History: Reports: Fracture, Osteoarthritis, Other (See Below) Other Musculoskeletal History: hx of fx right leg, has schrapnel in abdomen Neurological History: Reports: Concussion, CVA Other Neuro History: hx of a "mild stroke" 15 years ago- no residual effects Psychiatric History: Reports: Anxiety, Depression, PTSD Endocrine/Metabolic History: Reports: Obesity/BMI 30+ Hematologic History: Reports: None Immunologic History: Reports: None Oncologic (Cancer) History: Reports: None Dermatologic History: Reports: Other (See Below) - Infectious Disease History Infectious Disease History: Reports: Influenza - Past Surgical History Head Surgeries/Procedures: Reports: None HEENT Surgical History: Reports: Oral Surgery Other HEENT Surgeries/Procedures: wisdom teeth Cardiovascular Surgical History: Reports: None Respiratory Surgical History: Reports: None GI Surgical History: Reports: Cholecystectomy, EGD, Hernia, Inguinal, Other ( See Below) Other GI Surgeries/Procedures: I&D of perirectal abscess Male Surgical History: Reports: Other (See Below) Other Male Surgeries/Procedures: hx of prostatitis, removal of cyst from left testicle Endocrine Surgical History: Reports: None Neurological Surgical History: Reports: None Musculoskeletal Surgical History: Reports: ORIF Other Musculoskeletal Surgeries/Procedures:: ORIF right leg- has screws Oncologic Surgical History: Reports: None Dermatological Surgical History: Reports: None - SUBSTANCE USE Smoking Status *Q: Current Every Day Smoker Tobacco Use Within Last Twelve Months: Cigarettes Recreational Drug Use History: No - HOME MEDS Home Medications: Home Meds Losartan [Cozaar] 100 mg PO QAM 08/31/16 [History] Bismuth Subsalicylate [Pepto Bismol] 1 dose PO DAILY PRN 10/24/18 [History] Cannabidiol (Cbd) Extract [CBD Oil] 1 dose PO BID 10/24/18 [History] Cyclobenzaprine HCl 10 mg PO ASDIRECTED PRN 10/24/18 [History] Escitalopram Oxalate 10 mg PO QAM 10/24/18 [History] Omeprazole Magnesium [Prilosec Otc] 40 mg PO QAM 10/24/18 [History] amLODIPine Besylate [Amlodipine Besylate] 5 mg PO QAM 10/24/18 [History] - CURRENT (IN HOUSE) MEDS Current Meds: Current Medications Lactated Ringer's (Ringers, Lactated) 1,000 mls @ 125 mls/hr IV ASDIRECTED [facility]
[2018-10-27] MEDS ORDERED: Propofol 200 MG/20 ML SDV ONE ×2 (09:23→09:55)
[2018-10-27] MEDS ORDERED: Lidocaine 2% 5 ML SDV ONE (09:23)
[2018-10-27] MEDS ORDERED: Ketamine 500 mg/10 ML MDV ONE (09:25)
[2018-10-27] MEDS ORDERED: Levofloxacin/Dextrose 5%-Water 750 MG in Premix Bag 1 BAG IV ONE (09:36)
[2018-10-27] MEDS ORDERED: Levofloxacin/Dextrose 5%-Water 150 ML IV ONE (09:37)
[2018-10-27] MEDS ORDERED: Glycopyrrolate 0.2 MG/ML SDV ONE (10:05)
--- NOTE | 2018-10-27 10:16 | PCM.OPNOTE ---
- General Post-Op/Procedure Note Date of Surgery/Procedure: 10/27/18 Operative Procedure(s): egd w bx. colonoscopy snare polypectomy Findings: see [id number] Pre Op Diagnosis: rectal bleed and gerd Post-Op Diagnosis: Same Anesthesia Technique: Moderate Sedation Primary Surgeon: Miguel Gomez Pathology: egd bx colon polyp at 80cm and 25 cm Complications: None Condition: Good
--- NOTE | 2018-10-27 10:36 | PCM.POSTAN ---
POST ANESTHESIA ASSESSMENT - MENTAL STATUS Mental Status: Alert, Oriented - VITAL SIGNS Vital Signs: Last Vital Signs Temp 97.3 F 10/27/18 08:11 Pulse 99 10/27/18 10:30 Resp 18 10/27/18 10:30 BP 115/76 10/27/18 10:30 Pulse Ox 94 L 10/27/18 10:30 - RESPIRATORY Respiratory Status: Respiratory Rate WNL, Airway Patent, O2 Saturation Stable - CARDIOVASCULAR CV Status: Pulse Rate WNL, Blood Pressure Stable - GASTROINTESTINAL GI Status: No Symptoms - PAIN Pain Score: 1 - POST OP HYDRATION Hydration Status: Adequate & Stable
[2018-10-27 10:50] VITALS: BP 148/72; PULSE 92
--- NOTE | 2018-10-27 11:20 | PCM48HPAN ---
Post Anesthesia Note - EVALUATION WITHIN 48HRS OF ANESTHETIC Vital Signs in Normal Range: Yes Patient Participated in Evaluation: Yes Respiratory Function Stable: Yes Airway Patent: Yes Cardiovascular Function Stable: Yes Hydration Status Stable: Yes Pain Control Satisfactory: Yes Nausea and Vomiting Control Satisfactory: Yes Mental Status Recovered: Yes Vital Signs: Last Vital Signs Temp 97.3 F 10/27/18 08:11 Pulse 92 10/27/18 10:35 Resp 14 10/27/18 10:35 BP 148/72 H 10/27/18 10:35 Pulse Ox 96 10/27/18 10:35
--- NOTE | 2018-10-27 11:52 | OR ---
SURGEON: Miguel Gomez MD DATE OF PROCEDURE: 10/27/2018 Patient: Caryl Orta 62 EMR [id number] PREOPERATIVE DIAGNOSES: Rectal bleeding and gastroesophageal reflux disease. PROCEDURE PERFORMED: Esophagogastroduodenoscopy with biopsy and colonoscopy with snare polypectomy. DESCRIPTION OF PROCEDURE: EGD: The patient was taken to the endoscopy room, and with the CREDIT REFERENCE CLERK, Diprivan was administered. A well-lubricated EGD scope was gently inserted through the oropharynx, down the esophagus, passing through the gastroesophageal junction, into the stomach. The mucosa was examined upon the passage. Any etiology will be noted. Once in the stomach, we continued to advance to the distal antrum, passed through the pylorus into the second portion of the duodenum. Again, the mucosa was examined for any abnormality and etiology. The scope was then retrieved back to the stomach and then retroflexed to look at the fundus of the stomach. If a biopsy was indicated, we will biopsy the antrum, body, and gastroesophageal junction. The air will be sucked out while the scope is retrieved to reduce the patient's discomfort. The patient tolerated the procedure well. There were no intraoperative complications. Dr. Gomez was present through the whole procedure. Prior to surgery, a time-out had been called, the patient identified, procedure identified and antibiotic administered. The patient was taken to the endoscopy room. A time out was called, patient identified, and procedure identified. Diprivan was then administrated. Patient went from awake to sleep, hearing doctor talking or door closing is normal. Perineum inspection and digital examination were then performed. A well- lubricated colonoscope was gently inserted through the rectum, advanced past the rectosigmoid junction, the descending colon, splenic flexure, transverse colon, hepatic flexure, ascending colon, arrived to the cecum. Cecum was identified as dictated in the finding. Then the scope was carefully withdrawn while attention was paid to the mucosal surface for any abnormality. Air will be sucked out during the scope withdrawal. At the rectum, retroflexed to examine any rectal diseases, fistula or hemorrhoids. During mucosal examination, abnormality or polyp encountered. Using snare equipment, the abnormality or the polyp was then snared off using electrocautery. The patient tolerated procedure well. There were no intraoperative complications, and Dr. Gomez was present throughout the whole procedure. FINDINGS: EGD findings: 1. The patient is easily sedated with CREDIT REFERENCE CLERK and Diprivan. The patient is soundly snoring. 2. Oropharynx and proximal esophagus are free of disease. Distal esophagus at GE junction at 40 shows marked salmon-colored change consistent with acid reflux. Stomach is a little bit inflamed and there is no food or blood observed. There is some bile. Duodenum was grossly normal and there was no hiatal hernia. Sucked out the gas while scope pulling out after biopsy at antrum, body, and GE junction at 40. Colonoscopy findings: 1. The patient is easily sedated with CREDIT REFERENCE CLERK and Diprivan, the patient is soundly snoring. 2. Bowel prep is average with moderate amount of opaque liquid stool and compromised study even despite a lot of irrigation. No semi-formed stool. Colon rather straightforward. Cecum indicated by ileocecal fold, one-to- one indentation, appendiceal orifice. ScopeGuide is pointing south. Light emittance is not observed. Mucosa examined upon scope pulling out, and the patient has three small polyps, first one is at 80. It was snared, captured, and sent for pathology and the other two are done with biopsy forceps at distance 25. The patient does not have diverticulosis, inflammation, stricture, ulceration, AV malformation, bleeding, none of those. The patient has moderate external hemorrhoids and internal hemorrhoids. The patient would benefit from repeat colonoscopy in 3 years from today or if clinically indicated otherwise. LINDA / NAOMI /[id number] GARY
== END 2018-10-27 11:18 | disposition home or self-care (01) ==
LOC: MW.SDS 07:54
PROVIDERS: ATTEND Surgery
DX: K63.5 Polyp of colon (principal); K21.0 Gastro-esophageal reflux disease with esophagitis; K29.50 Unspecified chronic gastritis without bleeding; K31.89 Other diseases of stomach and duodenum; K64.4 Residual hemorrhoidal skin tags; K64.8 Other hemorrhoids; K62.5 Hemorrhage of anus and rectum; K58.0 Irritable bowel syndrome with diarrhea; I10 Essential (primary) hypertension; F17.210 Nicotine dependence, cigarettes, uncomplicated; M18.9 Osteoarthritis of first carpometacarpal joint, unspecified; Z88.8 Allergy status to other drugs, medicaments and biological substances; Z91.040 Latex allergy status; Z79.899 Other long term (current) drug therapy
CPT/HCPCS: 43239; 45380; 45385; J1956; J2001; J2704; J3490; J7120; 88305; 88312

== ENCOUNTER 2020-04-13 22:19 | Emergency (ER) | payer OTHER ==
[2020-04-13] MEDS ORDERED: Aspirin 81 MG Tab.Chew PO ONE (22:34)
[2020-04-13 22:53] LABS: BLOOD UREA NITROGEN,BUN 16 mg/dL (7.0-18.0); CARBON DIOXIDE,CO2 24.4 mmol/L (21.0-32.0); CHLORIDE,CL 101 mmol/L (98-107); GLUCOSE RANDOM 190 mg/dL (74-106); POTASSIUM,K 3.8 mmol/L (3.5-5.1); SODIUM,NA 138 mmol/L (136-148)
[2020-04-13] MEDS ORDERED: Albuterol 0.083% 2.5 MG/3 ML Neb Soln NEB STA (22:54)
[2020-04-13] MEDS ORDERED: predniSONE 20 MG Tab PO ONE (22:54)
[2020-04-13] MEDS ORDERED: Ipratropium 0.02% 0.5 MG/2.5 ML Neb Soln NEB ONE (22:54)
[2020-04-13] MEDS ORDERED: Magnesium Sulfate (4.06 MEQ/ML) 5 GM/10 ML SDV IV STA (23:01)
[2020-04-13] MEDS ORDERED: Magnesium Sulfate/Water 2 GM/50 ML BAG IV ONE (23:30)
--- NOTE | 2020-04-13 23:35 | CR ---
Indication: Chest pain Technique: Chest 1 view Comparison: None Findings/Impression: Cardiovascular and mediastinum: Heart size and vasculature are normal in caliber and appearance. Mediastinum is within normal limits. Lungs and pleural space: Lungs are clear. No sign of infiltrate or mass. No sign of pleural effusion. No pneumothorax. Bones and soft tissues: No significant findings. Dictated by Jenn Orta MD @ Apr 13 2020 11:32PM Signed by Dr. Jenn Orta @ Apr 13 2020 11:33PM
[2020-04-14] MEDS ORDERED: Iopamidol 755 MG/ML 500 ML Multipack Bottle IVPUSH STA (00:02)
--- NOTE | 2020-04-14 01:02 | CT ---
INDICATION: Right-sided chest pain, lower extremity swelling, recent wrist surgery, elevated D-dimer, evaluate for PE TECHNIQUE: Contrast enhanced axial CT imaging through the chest, optimized for assessment of the pulmonary arterial tree. 75 mL Isovue 370 contrast agent was administered intravenously. Sagittal and coronal reconstructions are provided. COMPARISON: None FINDINGS: There is adequate opacification of the pulmonary arterial tree without evidence of thromboembolism. The main pulmonary artery is nonenlarged. The heart is normal in size. There is no pericardial effusion. Coronary artery calcification is noted. The thoracic aorta is normal in caliber. A few nonspecific prominent enlarged lymph nodes are noted in the mediastinum. The lungs are clear. There is no pleural effusion or pneumothorax. The thoracic osseous structures are unremarkable. There is decreased attenuation of the liver parenchyma, consistent with steatosis. Cholecystectomy clips are also noted. IMPRESSION: 1. No evidence of pulmonary thromboembolism. 2. Hepatic steatosis. Please note that all CT scans at this facility use dose modulation, iterative reconstruction, and/or weight-based dosing when appropriate to reduce radiation dose to as low as reasonably achievable. Dictated by Lashonda Carl MD @ Apr 14 2020 1:01AM Signed by Dr. Lashonda Carl @ Apr 14 2020 1:01AM
[2020-04-14] MEDS ORDERED: Albuterol HFA 18 Gm Inhaler INH STA (01:21)
[2020-04-14] MEDS ORDERED: Albuterol 8 GM Inhaler INH ONE (01:25)
[2020-04-14] MEDS ORDERED: Albuterol HFA 18 Gm Inhaler INH ONE (01:37)
--- NOTE | 2020-04-14 02:30 | EDM.PDOC ---
ED HPI GENERAL MEDICAL PROBLEM - General Chief Complaint: Chest Pain Stated Complaint: CHEST PAIN Time Seen by Provider: 04/13/20 22:23 - History of Present Illness INITIAL COMMENTS - FREE TEXT/NARRATIVE: CHIEF COMPLAINT(S): Chest pain HISTORY OF PRESENT ILLNESS: This is a 59-year-old man with a past medical history of hypertension, obesity, and chronic tobacco use disorder who comes to the emergency department with a chief complaint of chest pain. The patient states that approximately 1 hour prior to arrival he started to experience right-sided chest pain which she describes as crampy and pressure rated 8 out of 10 initially. He states that his pain now is currently 0 out of 10. He states that he was just sitting when this happened. He denied any diaphoresis, nausea or vomiting. He denies any recent heavy lifting. He states that there is no aggravating or relieving symptoms other than it has resolved on its own. He states that he did just recently have a left wrist surgery and has not been as active as normal. He states that his left foot was swollen the other day so he placed a bandage. He denies any leg swelling or calf tenderness. He denies any history of blood clots. He denies any recent travel or large surgery. He states that last year he had a pneumonia and congestion for which his primary care physician did put him on inhalers which did clear up the congestion. He denies any other symptoms such as syncope, back pain, numbness, tingling, or weakness. He denies any history of CAD or CHF. REVIEW OF SYSTEMS: Constitutional: Denies fever, chills. Eyes: Denies eye pain Ears, Nose, Mouth, & Throat: Denies earache Cardiovascular: Positive for right-sided chest pain. Positive for left foot and ankle swelling Respiratory: Denies shortness of breath Gastrointestinal: Denies Nausea, vomiting, diarrhea, hematochezia. Genitourinary: Denies hematuria Skin:Denies a rash MSK: Denies joint pain Neurological: Denies blurred vision, numbness, tingling, weakness Psychiatric: Denies depression PAST MEDICAL HISTORY: As per history of present illness and as reviewed below otherwise noncontributory. SURGICAL HISTORY: As per history of present illness and as reviewed below otherwise noncontributory. SOCIAL HISTORY: As per history of present illness and as reviewed below otherwise noncontributory. FAMILY HISTORY: As per history of present illness and as reviewed below otherwise noncontributory. EXAMINATION OF ORGAN SYSTEMS/BODY AREAS: Constitutional: Blood pressure was 192/83, heart rate 88, respiratory rate 18 with an oxygen saturation of 97% on room air. Temperature 36.4 General: Obese gentleman who does not appear to be in acute distress. Psychiatric: Appropriate mood and affect. Eyes: No scleral icterus or conjunctival erythema ENMT: Moist mucous membranes. No pharyngeal erythema Cardiovascular: Regular, rate, and rhythm. No gallops, murmurs, or rubs. Bilateral upper extremity pulses symmetric and intact. No peripheral edema. No JVD. Respiratory: There is mild expiratory wheezing bilaterally. The patient is speaking in full sentences. No crackles. Gastrointestinal: Soft, non-tender, non-distended. Normoactive bowel sounds Genitourinary: No suprapubic tenderness Musculoskeletal: Normal range of motion. Patient has a cast to his left wrist. Skin: No lesions or abrasions. No lower extremity swelling. Neurological: Alert, GCS 15 strength and sensation grossly intact MEDICAL DECISION MAKING AND COURSE IN THE ED WITH INTERPRETATION/REVIEW OF DIAGNOSTIC STUDIES: This is a 59-year-old man with a past medical history of hypertension, obesity and chronic tobacco use who comes to the emergency department with acute right-sided chest pain who is hypertensive with bilateral expiratory wheezing on examination otherwise unremarkable. The patient did have left ankle and foot swelling and I do not suspect any evidence of DVT however the patient has been sedentary for some time since the surgery therefore we will obtain a D-dimer to evaluate for PE. EKG was obtained which did not reveal any acute signs of ischemia. Will undergo a cardiac work-up including a repeat troponin. We will provide the patient with a DuoNeb treatment and prednisone as I do suspect the patient has undiagnosed COPD. This could be the reason for his presentation today. We also provide the patient with aspirin by mouth. Laboratory: CBC reveals a leukocytosis of 11.15 with normal indices. This is around normal. BMP reveals elevated creatinine at 1.5, hyperglycemia at 190 and hypomagnesemia at 1.7. Troponin x1 is negative. D-dimer is elevated at 0.62. Time: 2212 Twelve-lead EKG interpreted by myself. Normal sinus rhythm at a rate of 95beats per minute. Normal axis. ID interval is 159ms. QRS duration is 111ms. ST segments are normal without elevations or depressions. No T wave inversions no Q waves present. Hypertrophy not noted. No prior EKGs in our system. Interpretation: Normal sinus rhythm The radiological images were viewed by myself along with reading the report from the radiologist. Chest x-ray does not reveal any acute cardiopulmonary process. On reevaluation the patient had clear lung sounds with no wheezing and was still speaking in full sentences. At this time I did discuss with him that his D- dimer was elevated. I discussed that I would like to obtain a CT PE. He was amenable to this plan. The radiological images were viewed by myself along with reading the report from the radiologist. CT angio of the chest for pulmonary embolism does not reveal any evidence of pulmonary embolism. There is hepatic steatosis otherwise unremarkable. Laboratory: Repeat troponin is negative. After repeat troponin I did discuss results with the patient. I discussed with him at this time I do believe there is a possibility of COPD. I discussed that I be providing him with prednisone to be used for the next 5 days and that he should use albuterol every 4-6 hours for relief. He does have an appointment to see his primary care physician today and I discussed with him that he should review his visit here with him and also discussed COPD. He is to return for any new or worsening symptoms such as worsening left lower extremity swelling that extends upwards towards the calf, worsening chest pain or shortness of breath. He was amenable to discharge at this time and had no further questions. DISPOSITION: The patient was discharged home in stable condition. The patient will follow up with Dr. Turner today CONDITION: Fair PROCEDURES: None FINAL IMPRESSION(S)/DIAGNOSES: 1. Acute right-sided chest pain, unknown etiology 2. Acute wheezing, suspect COPD Fransico Emery M.D. chest pain Pain Score (Numeric/FACES): 1 - Related Data Allergies Allergy/AdvReac Type Severity Reaction Status Date / Time hydrochlorothiazide Allergy Hives Verified 04/13/20 22:21 Latex, Natural Rubber Allergy Blisters Verified 04/13/20 22:21 lisinopril Allergy Cough Verified 04/13/20 22:21 Home Meds: Home Meds Bismuth Subsalicylate [Pepto Bismol] 1 dose PO DAILY PRN 10/24/18 [History] Cyclobenzaprine HCl 10 mg PO ASDIRECTED PRN 10/24/18 [History] Escitalopram Oxalate 10 mg PO QAM 10/24/18 [History] Omeprazole Magnesium [Prilosec Otc] 40 mg PO QAM 10/24/18 [History] Diltiazem [Diltiazem XR] 240 mg PO DAILY 04/13/20 [History] predniSONE [Prednisone] 50 mg PO ONETIME #5 tablet 04/14/20 [Rx] Past Medical History HEENT History: Reports: Macular Degeneration Other HEENT History: Macular degeneration in left eye- no medication, wears glasses Cardiovascular History: Reports: Hypertension Respiratory History: Reports: Pneumonia, Recurrent Gastrointestinal History: Reports: GERD, Irritable Bowel Syndrome Genitourinary History: Reports: Other (See Below) Musculoskeletal History: Reports: Fracture, Osteoarthritis, Other (See Below) Other Musculoskeletal History: hx of fx right leg, has schrapnel in abdomen Neurological History: Reports: Concussion, CVA Other Neuro History: hx of a "mild stroke" 15 years ago- no residual effects Psychiatric History: Reports: Anxiety, Depression, PTSD Endocrine/Metabolic History: Reports: Obesity/BMI 30+ Insulin 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 Model and Bioinformatics Software 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: None Hematologic History: Reports: None Immunologic History: Reports: None Oncologic (Cancer) History: Reports: None Dermatologic History: Reports: Other (See Below) - Infectious Disease History Infectious Disease History: Reports: Influenza - Past Surgical History Head Surgeries/Procedures: Reports: None HEENT Surgical History: Reports: Oral Surgery Other HEENT Surgeries/Procedures: wisdom teeth Cardiovascular Surgical History: Reports: None Respiratory Surgical History: Reports: None GI Surgical History: Reports: Cholecystectomy, EGD, Hernia, Inguinal, Other (See Below) Other GI Surgeries/Procedures: I&D of perirectal abscess Male Surgical History: Reports: Other (See Below) Other Male Surgeries/Procedures: hx of prostatitis, removal of cyst from left testicle Endocrine Surgical History: Reports: None Neurological Surgical History: Reports: None Musculoskeletal Surgical History: Reports: ORIF Other Musculoskeletal Surgeries/Procedures:: ORIF right leg- has screws. hand fussion - left Oncologic Surgical History: Reports: None Dermatological Surgical History: Reports: None Social & Family History - Family History Family Medical History: No Pertinent Family History - Tobacco Use Tobacco Use Status *Q: Current Every Day Tobacco User Years of Tobacco use: 40 Packs/Tins Daily: 1.5 - Caffeine Use Caffeine Use: Reports: Coffee Caffeine Use Comment: 3 cups a daily - Recreational Drug Use Recreational Drug Use: No ED ROS ALLERGIC REACTION - Review of Systems Review Of Systems: See Below ED EXAM GENERAL NO PERIP PULSE - Physical Exam Exam: See Below Course - Vital Signs Last Recorded V/S: Last Vital Signs Temp 36.9 C 04/14/20 02:49 Pulse 72 04/14/20 02:49 Resp 18 04/14/20 02:49 BP 150/78 H 04/14/20 02:49 Pulse Ox 97 04/14/20 02:49 - Orders/Labs/Meds Labs: Laboratory Tests 04/13/20 04/13/20 04/13/20 Range/Units 22:28 22:28 22:28 WBC 11.15 H (4.0-11.0) K/uL RBC 4.80 (4.50-5.90) M/uL Hgb 16.9 (13.0-17.0) g/dL Hct 47.7 (38.0-50.0) % MCV 99.4 H (80.0-98.0) fL MCH 35.2 H (27.0-32.0) pg MCHC 35.4 (31.0-37.0) g/dL RDW Std Deviation 43.8 (28.0-62.0) fl RDW Coeff of Zhen 12 (11.0-15.0) % Plt Count 274 (150-400) K/uL MPV 10.00 (7.40-12.00) fL Neut % (Auto) 61.6 (48.0-80.0) % Lymph % (Auto) 32.1 (16.0-40.0) % [place] % (Auto) 5.5 (0.0-15.0) % Eos % (Auto) 0.6 (0.0-7.0) % Baso % (Auto) 0.2 (0.0-1.5) % Neut # (Auto) 6.9 H (1.4-5.7) K/uL Lymph # (Auto) 3.6 H (0.6-2.4) K/uL [place] # (Auto) 0.6 (0.0-0.8) K/uL Eos # (Auto) 0.1 (0.0-0.7) K/uL Baso # (Auto) 0.0 (0.0-0.1) K/uL Nucleated RBC % 0.0 /100WBC Nucleated RBCs # 0 K/uL D-Dimer, Quantitative 0.62 H (0.0-0.50) mg/L FEU Sodium 138 (136-148) mmol/L Potassium 3.8 (3.5-5.1) mmol/L Chloride 101 (98-107) mmol/L Carbon Dioxide 24.4 (21.0-32.0) mmol/L BUN 16 (7.0-18.0) mg/dL Creatinine 1.5 H (0.8-1.3) mg/dL Est Cr Clr Drug Dosing 53.68 mL/min Estimated GFR (MDRD) 48.1 ml/min Glucose 190 H (74-106) mg/dL Calcium 8.8 (8.5-10.1) mg/dL Magnesium 1.7 L (1.8-2.4) mg/dL Troponin I < 0.050 (0.000-0.056) ng/mL 04/14/20 Range/Units 01:59 WBC (4.0-11.0) K/uL RBC (4.50-5.90) M/uL Hgb (13.0-17.0) g/dL Hct (38.0-50.0) % MCV (80.0-98.0) fL MCH (27.0-32.0) pg MCHC (31.0-37.0) g/dL RDW Std Deviation (28.0-62.0) fl RDW Coeff of Zhen (11.0-15.0) % Plt Count (150-400) K/uL MPV (7.40-12.00) fL Neut % (Auto) (48.0-80.0) % Lymph % (Auto) (16.0-40.0) % [place] % (Auto) (0.0-15.0) % Eos % (Auto) (0.0-7.0) % Baso % (Auto) (0.0-1.5) % Neut # (Auto) (1.4-5.7) K/uL Lymph # (Auto) (0.6-2.4) K/uL [place] # (Auto) (0.0-0.8) K/uL Eos # (Auto) (0.0-0.7) K/uL Baso # (Auto) (0.0-0.1) K/uL Nucleated RBC % /100WBC Nucleated RBCs # K/uL D-Dimer, Quantitative (0.0-0.50) mg/L FEU Sodium (136-148) mmol/L Potassium (3.5-5.1) mmol/L Chloride (98-107) mmol/L Carbon Dioxide (21.0-32.0) mmol/L BUN (7.0-18.0) mg/dL Creatinine (0.8-1.3) mg/dL Est Cr Clr Drug Dosing mL/min Estimated GFR (MDRD) ml/min Glucose (74-106) mg/dL Calcium (8.5-10.1) mg/dL Magnesium (1.8-2.4) mg/dL Troponin I < 0.050 (0.000-0.056) ng/mL Meds: Medications Discontinued Medications Generic Name Dose Route Start Last Admin Trade Name Freq PRN Reason Stop Dose Admin Albuterol 5 mg 04/13/20 22:54 04/13/20 23:02 Proventil Neb Soln NEB 04/13/20 22:55 5 mg ONETIME STA Administration Albuterol 2 gm 04/14/20 01:21 04/14/20 01:34 Ventolin Hfa INH 04/14/20 01:22 Not Given Q4H STA Albuterol Confirm 04/14/20 01:25 04/14/20 01:45 Ventolin Hfa Administered 04/14/20 01:26 Not Given Dose 8 gm INH .STK-MED ONE Albuterol 8 gm 04/14/20 01:37 04/14/20 02:42 Ventolin Hfa INH 04/14/20 01:38 1 device ONETIME ONE Administration Aspirin 324 mg 04/13/20 22:34 04/13/20 22:42 Aspirin PO 04/13/20 22:35 324 mg ONETIME ONE Administration Magnesium Sulfate 2 gm in 50 mls @ 100 mls/hr 04/13/20 23:30 04/13/20 23:21 Magnesium Sulfate In Water 2 Gm/50 Ml IV 04/13/20 23:59 100 mls/hr NOW ONE Administration Iopamidol 75 ml 04/14/20 00:02 04/14/20 00:03 Isovue Multipack-370 (76%) IVPUSH 04/14/20 00:03 75 ml ONETIME STA Administration Ipratropium [place] 0.5 mg 04/13/20 22:54 04/13/20 23:21 Atrovent NEB 04/13/20 22:55 0.5 mg ONETIME ONE Administration Magnesium Sulfate 2 gm 04/13/20 23:01 Magnesium Sulfate 50% IV 04/13/20 23:02 ONETIME STA Prednisone 60 mg 04/13/20 22:54 04/13/20 23:00 Prednisone PO 04/13/20 22:55 60 mg ONETIME ONE Administration Departure - Departure Time of Disposition: :29 Disposition: Home, Self-Care 01 Condition: Fair Clinical Impression: Atypical chest pain, COPD (chronic obstructive pulmonary disease) with acute bronchitis - Discharge Information *PRESCRIPTION DRUG MONITORING PROGRAM REVIEWED*: No *COPY OF PRESCRIPTION DRUG MONITORING REPORT IN PATIENT ROBIN: No Prescriptions: predniSONE [Prednisone] 50 mg PO ONETIME #5 tablet Instructions: Chronic Obstructive Pulmonary Disease, [id number], Metered Dose Inhaler (No Spacer Used), Nonspecific Chest Pain, Adult, [id number] Referrals: PCP,None [Primary Care Provider] - Chris Turner MD [Ordering Only Provider] - Forms: ED Department Discharge Additional Instructions: You were evaluated today on an emergent basis. At this time your work-up was negative. I do believe that your symptoms are likely secondary to possible COPD. I did provide you with steroids and an albuterol inhaler here. I would like you to complete a 5-day course of steroids and continue to use the albuterol inhaler as needed. You do have an appointment with your primary care physician today so I encourage you to discuss this with him for continued management. If you have any new or worsening symptoms please return to the emergency department. The symptoms include chest pain, shortness of breath, passing out. [facility] - [facility] [address] [place] [id number] [address] [address] The patient is informed of any results of their evaluation and diagnostic workup and all questions are answered. They are given discharge instructions and return precautions. The patient is stable for discharge. The patient states they understand and agree with the plan and that they will return if their symptoms get worse or if they have any new concerns. The following information is given to patients seen in the emergency department who are being discharged to home. This information is to outline your options for follow-up care. We provide all patients seen in our emergency department with a follow-up referral. The need for follow-up, as well as the timing and circumstances, are variable depending upon the specifics of your emergency department visit. If you don't have a primary care physician on staff, we will provide you with a referral. We always advise you to contact your personal physician following an emergency department visit to inform them of the circumstance of the visit and for follow-up with them and/or the need for any referrals to a consulting specialist. The emergency department will also refer you to a specialist when appropriate. This referral assures that you have the opportunity for follow-up care with a specialist. All of these measure are taken in an effort to provide you with optimal care, which includes your follow-up. Under all circumstances we always encourage you to contact your private physician who remains a resource for coordinating your care. When calling for follow-up care, please make the office aware that this follow-up is from your recent emergency room visit. If for any reason you are refused follow-up, please contact the [facility] Emergency Department at and asked to speak to the emergency department charge nurse. Sepsis Event Note (ED) - Evaluation Sepsis Screening Result: No Definite Risk - Focused Exam Vital Signs: Vital Signs Temp Pulse Resp BP Pulse Ox 04/14/20 02:49 36.9 C 72 18 150/78 H 97 04/14/20 00:48 88 16 128/84 98 04/13/20 22:20 36.4 C 88 18 192/83 H 97
[2020-04-14 02:51] VITALS: BP 150/78; PULSE 72
== END 2020-04-14 02:49 | disposition home or self-care (01) ==
LOC: MW.ED 22:19
DX: J44.0 Chronic obstructive pulmonary disease with (acute) lower respiratory infection (principal); J20.9 Acute bronchitis, unspecified; K21.9 Gastro-esophageal reflux disease without esophagitis; I10 Essential (primary) hypertension; E66.9 Obesity, unspecified; Z91.040 Latex allergy status; Z72.0 Tobacco use; Z88.8 Allergy status to other drugs, medicaments and biological substances; Z79.899 Other long term (current) drug therapy; Z68.39 Body mass index [BMI] 39.0-39.9, adult
CPT/HCPCS: 36415; 71045; 71275; 80048; 83735; 84484; 85025; 85379; 93005; 94640; 96365; 96366; 99285; A9270; J3475; Q9967; 93010; 99284; J3535-GY

== ENCOUNTER 2020-12-14 13:50 | Emergency (ER) | payer OTHER ==
[2020-12-14] MEDS ORDERED: Sodium Chloride 0.9% 2.5 ML Syringe FLUSH PRN (14:05)
[2020-12-14] MEDS ORDERED: Sodium Chloride 0.9% 10 ML Syringe FLUSH PRN (14:05)
[2020-12-14] MEDS ORDERED: Ondansetron 4 MG/2 ML SDV IVPUSH ONE (14:06)
[2020-12-14] MEDS ORDERED: Meclizine 25 MG Tab PO ONE ×2 (14:06→17:38)
--- NOTE | 2020-12-14 14:18 | PCM.EKG ---
#1 Interpretation EKG Date: 12/14/20 Time: 14:18 EKG Interpretation Comments: Normal sinus rhythm rate of 73 normal axis and intervals no acute ischemia.
--- NOTE | 2020-12-14 14:35 | CR ---
INDICATION: Dizziness. TECHNIQUE: Chest 1 view. COMPARISON: None FINDINGS: Cardiovascular and mediastinum: Heart size and vasculature are normal in caliber and appearance. Mediastinum is within normal limits. Lungs and pleural space: Lungs are clear. No sign of infiltrate or mass. No sign of pleural effusion. No pneumothorax. Bones and soft tissues: No significant findings. IMPRESSION: Unremarkable chest. Dictated by Dorian Lopez MD @ 12/14/2020 2:33:23 PM (Electronically Signed)
[2020-12-14 14:42] LABS: BLOOD UREA NITROGEN,BUN 20 mg/dL (7.0-18.0); CARBON DIOXIDE,CO2 22.5 mmol/L (21.0-32.0); CHLORIDE,CL 101 mmol/L (98-107); GLUCOSE RANDOM 183 mg/dL (74-106); POTASSIUM,K 4.1 mmol/L (3.5-5.1); SODIUM,NA 137 mmol/L (136-148)
--- NOTE | 2020-12-14 14:42 | EDM.PDOC ---
ED HPI GENERAL MEDICAL PROBLEM - General Chief Complaint: General Stated Complaint: DIZZY, RT EAR RINGING Time Seen by Provider: 12/14/20 13:56 Source of Information: Reports: Patient History Limitations: Reports: No Limitations - History of Present Illness INITIAL COMMENTS - FREE TEXT/NARRATIVE: HISTORY AND PHYSICAL: History of present illness: Patient is a 60-year-old male who presents emergency room today with concern of sudden onset dizziness/"room is spinning" and vomiting. 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 Patient states that he was also hearing popping sensations in his right ear similar to "cooking stern ". Patient states he continues to have the pressure in his right ear. Patient states that after this, he began getting dizzy and lightheaded which is worse with positioning his head in different directions. Patient states that he did not hit his head or lose con sciousness. Patient states that he had a friend drive him here to the emergency room after he was not improving after approximately 20 minutes. States he has not taken anything for his symptoms. Patient denies fever, chills, chest pain, shortness of breath, or cough. Denies headache, neck stiff ness, change in vision, syncope, or near syncope. Denies abdominal pain, diarrhea, constipation, or dysuria. Has not noted any blood in urine or stool. Patient has been eating and drinking appropriately. Review of systems: As per history of present illness and below otherwise all systems reviewed and negative. Past medical history: As per history of present illness and as reviewed below otherwise noncontributory. Surgical history: As per history of present illness and as reviewed below otherwise noncontributory. Social history: See social history for further information Family history: As per history of present illness and as reviewed below otherwise noncontributory. Physical exam: General: Patient is alert, oriented, and in no acute distress. Patient sitting on exam table, patient is actively dry heaving on exam. Patient is diaphoretic. Vitals stable and reviewed by me. HEENT: See neuro below. Otherwise, patients right TM is dull and erythematous without pus, left TM is normal. Otherwise, atraumatic, normocephalic, pupils equal and reactive bilaterally, negative for conjunctival pallor or scleral icterus, mucous membranes moist, throat clear, neck supple, nontender, trachea midline. No drooling or trismus noted. No meningeal signs. No hot potato voice noted. Lungs: Clear to auscultation, breath sounds equal bilaterally, chest nontender. Heart: S1S2, regular rate and rhythm without overt murmur Abdomen: Soft, nondistended, nontender. Negative for masses or hepatosple nomegaly. Negative for costovertebral tenderness. Pelvis: Stable nontender. Genitourinary: Deferred. Rectal: Deferred. Skin: Intact, warm, dry. No lesions or rashes noted. Extremities: Atraumatic, negative for cords or calf pain. Neurovascular unremarkable. Neuro: HINTS exam: Horizontal nystagmus to the left; unilateral only. No vertical nystagmus. Head impulse test abnormal to left. Test of skew shows no screw deviation. Reassuring HINTS exam for peripheral vertigo. Awake, alert, oriented. Cranial nerves II through XII unremarkable. Cerebellum unremarkable. Motor and sensory unremarkable throughout. Exam nonfocal. Medical Decision Making: Dr. Dupont was verbally involved in patient case from arrival to the ED, Patient is a 60-year-old male who presents emergency room today with concern of sudden onset dizziness, diaphoresis, nausea and vomiting after a sensation of right ear fullness/pain with popping in his right ear. Upon arrival to the ED, patient is actively dry heaving on exam. Patient is also diaphoretic on exam. Patient's hands exam is reassuring for peripheral vertigo along with suggestive of early otitis media of the right TM. HINTS exam does show unilateral horizontal nystagmus, head impulse test abnormal to the left. Test of skew shows no scew deviation which reassuring for peripheral vertigo. Will provide patient with therapeutics today for vertigo, obtain basic cardiac lab work, and reassess patient. See Dr. Sarmiento's dictation for specific EKG interpretation. However, normal sinus rhythm without STEMI. CBC mild returns unremarkable. CMP does show mild elevation of BUN at 20, glucose mildly elevated at 193, and ALT eyelid in isolation at 81. Troponin negative. CXR x-ray is unremarkable. Upon reevaluation of patient following Zofran and meclizine, he does state that he feels slightly less dizzy but still states that the "room is spinning " and does not want to sit up due to dizziness. Per Dr. Dupont, will try Ativan 1mg and reassess patient. Following 1 mg of Ativan, patient is quite sedated and sleeping on exam. He does sleep, but is arousable for 3-4 hours in the Emergency Room. With frequent monitoring of patient, he will wake for short periods but falls back asleep and too drowsy to reassess ability to sit up/walk. He does appear sensitive to Ativan administration making repeat evaluation of vertigo difficult to reassess. After patient sleeps for4 hours, reevaluation of patient and he still feels as if the room is spinning and requesting pain medication for the pain / popping in his right ear. Will give dose of Toradol. Per Dr. Dupont, will give an additional dose of Meclizine. If this does not improve his symptoms, plan to obtain angiography head/neck. Patient is still rather sleepy from the Ativan, however, did try to have patient walk and he is unable to do this. Given the longevity of patient's symptoms, will obtain angiography head and neck following negative head without. Angiography of the neck shows mild bilateral ICA stenosis, less than 50% by NASCET criteria. Otherwise no acute findings. Angiography of the head shows no large vessel occlusion. Upon reevaluation of patient, repeat neuro exam shows resolution of patient's horizontal nystagmus. Patient is now able to walk without difficulty and states he feels per his baseline. Patient states that he still feels a pressure/pain in his right ear and on exam did have an early acute otitis media. Patient is currently on Keflex for prophylactic antibiotics secondary to a tuft fracture. Discussed with patient stopping this antibiotic and switching to Augmentin for better coverage for both ENT and soft tissue. Will also provide patient prescription for meclizine Strict return precautions thoroughly discussed with patient. Discussed importa nce for follow-up with a primary care provider. Voices understanding and is agreeable to plan of care. Denies any further questions or concerns at this time. Diagnostics: EKG, CBC, CMP, Trop, CXR, head ct w/o, angiography head/neck, head w/o Therapeutics: Zofran, Meclizine, Ativan Prescription: Meclizine, Augmentin Impression: Vertigo Acute otitis media, right Plan: 1. Stop taking Keflex as prescribed and start Augmentin for ear infection as discussed. Take meclizine as prescribed to you as needed for vertigo symptoms. 2. Follow-up with your primary care provider as discussed. Return to the ED as needed and as discussed. Definitive disposition and diagnosis as appropriate pending reevaluation and review of above. - Related Data Allergies Allergy/AdvReac Type Severity Reaction Status Date / Time hydrochlorothiazide Allergy Hives Verified 04/13/20 22:21 Latex, Natural Rubber Allergy Blisters Verified 04/13/20 22:21 lisinopril Allergy Cough Verified 04/13/20 22:21 losartan Allergy Diarrhea Verified 12/14/20 14:06 Home Meds: Home Meds Bismuth Subsalicylate [Pepto Bismol] 1 dose PO DAILY PRN 10/24/18 [History] Cyclobenzaprine HCl 10 mg PO ASDIRECTED PRN 10/24/18 [History] Escitalopram Oxalate 10 mg PO QAM 10/24/18 [History] Omeprazole Magnesium [Prilosec Otc] 40 mg PO QAM 10/24/18 [History] Diltiazem [Diltiazem XR] 240 mg PO DAILY 04/13/20 [History] predniSONE [Prednisone] 50 mg PO ONETIME #5 tablet 04/14/20 [Rx] Amoxicillin/Potassium Clav [Augmentin 875-125 Tablet] 1 each PO BID 7 Days #14 tablet 12/14/20 [Rx] Meclizine [Antivert] 25 mg PO Q6H PRN #30 tab 12/14/20 [Rx] cephALEXin [Cephalexin] 500 mg PO DAILY 12/14/20 [History] Past Medical History HEENT History: Reports: Macular Degeneration Other HEENT History: Macular degeneration in left eye- no medication, wears glasses Cardiovascular History: Reports: Hypertension Respiratory History: Reports: Pneumonia, Recurrent Gastrointestinal History: Reports: GERD, Irritable Bowel Syndrome Genitourinary History: Reports: Other (See Below) Musculoskeletal History: Reports: Fracture, Osteoarthritis, Other (See Below) Other Musculoskeletal History: hx of fx right leg, has schrapnel in abdomen Neurological History: Reports: Concussion, CVA Other Neuro History: hx of a "mild stroke" 15 years ago- no residual effects Psychiatric History: Reports: Anxiety, Depression, PTSD Endocrine/Metabolic History: Reports: Obesity/BMI 30+ 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 Hematologic History: Reports: None Immunologic History: Reports: None Oncologic (Cancer) History: Reports: None Dermatologic History: Reports: Other (See Below) - Infectious Disease History Infectious Disease History: Reports: Influenza - Past Surgical History Head Surgeries/Procedures: Reports: None HEENT Surgical History: Reports: Oral Surgery Other HEENT Surgeries/Procedures: wisdom teeth Cardiovascular Surgical History: Reports: None Respiratory Surgical History: Reports: None GI Surgical History: Reports: Cholecystectomy, EGD, Hernia, Inguinal, Other (See Below) Other GI Surgeries/Procedures: I&D of perirectal abscess Male Surgical History: Reports: Other (See Below) Other Male Surgeries/Procedures: hx of prostatitis, removal of cyst from left testicle Endocrine Surgical History: Reports: None Neurological Surgical History: Reports: None Musculoskeletal Surgical History: Reports: ORIF Other Musculoskeletal Surgeries/Procedures:: ORIF right leg- has screws. hand fussion - left Oncologic Surgical History: Reports: None Dermatological Surgical History: Reports: None Social & Family History - Family History Family Medical History: No Pertinent Family History - Caffeine Use Caffeine Use: Reports: Coffee Caffeine Use Comment: 3 cups a daily - Recreational Drug Use Recreational Drug Use: No ED ROS GENERAL - Review of Systems Review Of Systems: Comprehensive ROS is negative, except as noted in HPI. ED EXAM, GENERAL - Physical Exam Exam: See Below (see dictation) Course - Vital Signs Last Recorded V/S: Last Vital Signs Temp 95.6 F L 12/14/20 14:07 Pulse 60 12/14/20 22:53 Resp 20 12/14/20 22:53 BP 131/90 12/14/20 22:53 Pulse Ox 97 12/14/20 22:53 - Orders/Labs/Meds Orders: Active Orders 24 hr Category Date Time Status Saline Lock Insert [OM.PC] Stat Oth 12/14/20 14:05 Ordered Labs: Laboratory Tests 12/14/20 12/14/20 Range/Units 14:05 14:05 WBC 9.21 (4.0-11.0) K/uL RBC 4.94 (4.50-5.90) M/uL Hgb 17.0 (13.0-17.0) g/dL Hct 46.6 (38.0-50.0) % MCV 94.3 (80.0-98.0) fL MCH 34.4 H (27.0-32.0) pg MCHC 36.5 (31.0-37.0) g/dL RDW Std Deviation 41.7 (28.0-62.0) fl RDW Coeff of Zhen 12 (11.0-15.0) % Plt Count 279 (150-400) K/uL MPV 10.20 (7.40-12.00) fL Neut % (Auto) 46.3 L (48.0-80.0) % Lymph % (Auto) 43.3 H (16.0-40.0) % [place] % (Auto) 9.9 (0.0-15.0) % Eos % (Auto) 0.4 (0.0-7.0) % Baso % (Auto) 0.1 (0.0-1.5) % Neut # (Auto) 4.3 (1.4-5.7) K/uL Lymph # (Auto) 4.0 H (0.6-2.4) K/uL [place] # (Auto) 0.9 H (0.0-0.8) K/uL Eos # (Auto) 0.0 (0.0-0.7) K/uL Baso # (Auto) 0.0 (0.0-0.1) K/uL Nucleated RBC % 0.0 /100WBC Nucleated RBCs # 0 K/uL Sodium 137 (136-148) mmol/L Potassium 4.1 (3.5-5.1) mmol/L Chloride 101 (98-107) mmol/L Carbon Dioxide 22.5 (21.0-32.0) mmol/L BUN 20 H (7.0-18.0) mg/dL Creatinine 1.2 (0.8-1.3) mg/dL Est Cr Clr Drug Dosing 66.28 mL/min Estimated GFR (MDRD) > 60.0 ml/min Glucose 183 H (74-106) mg/dL Calcium 9.2 (8.5-10.1) mg/dL Total Bilirubin 0.4 (0.2-1.0) mg/dL AST 31 (15-37) IU/L ALT 81 H (14-63) IU/L Alkaline Phosphatase 101 (46-116) U/L Troponin I < 0.050 (0.000-0.056) ng/mL Total Protein 7.5 (6.4-8.2) g/dL Albumin 3.8 (3.4-5.0) g/dL Globulin 3.7 (2.6-4.0) g/dL Albumin/Globulin Ratio 1.0 (0.9-1.6) Meds: Medications Discontinued Medications Generic Name Dose Route Start Last Admin Trade Name Freq PRN Reason Stop Dose Admin Lactated Ringer's 1,000 mls @ 999 mls/hr 12/14/20 20:15 12/14/20 20:05 Ringers, Lactated IV 999 mls/hr ASDIRECTED STELLA Administration Iopamidol 100 ml 12/14/20 22:40 12/14/20 22:40 Iopamidol 755 Mg/Ml 500 Ml Multipack Bottle IVPUSH 12/14/20 22:41 100 ml ONETIME ONE Administration Ketorolac Tromethamine 30 mg 12/14/20 15:49 12/14/20 15:53 Ketorolac 30 Mg/Ml Sdv IVPUSH 12/14/20 15:50 30 mg ONETIME ONE Administration Lorazepam 1 mg 12/14/20 15:15 12/14/20 15:27 Lorazepam 2 Mg/Ml Sdv IVPUSH 12/14/20 15:16 1 mg ONETIME ONE Administration Meclizine HCl 25 mg 12/14/20 14:06 12/14/20 14:10 Meclizine 25 Mg Tab PO 12/14/20 14:07 25 mg ONETIME ONE Administration Meclizine HCl 25 mg 12/14/20 17:38 12/14/20 17:44 Meclizine 25 Mg Tab PO 12/14/20 17:39 25 mg ONETIME ONE Administration Ondansetron HCl 4 mg 12/14/20 14:06 12/14/20 14:10 Ondansetron 4 Mg/2 Ml Sdv IVPUSH 12/14/20 14:07 4 mg ONETIME ONE Administration Scopolamine 1.5 mg 12/14/20 17:01 12/14/20 17:12 Scopolamine 1.5 Mg Transdermal Patch TRDERM 12/14/20 17:02 1.5 mg NOW STA Administration Sodium Chloride 10 ml 12/14/20 14:05 12/14/20 14:10 Sodium Chloride 0.9% 10 Ml Syringe FLUSH 10 ml ASDIRECTED PRN Administration Keep Vein Open Sodium Chloride 2.5 ml 12/14/20 14:05 12/14/20 14:10 Sodium Chloride 0.9% 2.5 Ml Syringe FLUSH 2.5 ml ASDIRECTED PRN Administration Keep Vein Open Departure - Departure Time of Disposition: 22:36 Disposition: Home, Self-Care 01 Clinical Impression: Vertigo Acute otitis media Qualifiers: Otitis media type: suppurative Laterality: right Recurrence: not specified as recurrent Spontaneous tympanic membrane rupture: without spontaneous rupture Qualified Code(s): H66.001 - Acute suppurative otitis media without spontaneous rupture of ear drum, right ear - Discharge Information Prescriptions: Meclizine [Antivert] 25 mg PO Q6H PRN #30 tab PRN Reason: Dizziness Amoxicillin/Potassium Clav [Augmentin 875-125 Tablet] 1 each PO BID 7 Days #14 tablet Instructions: Vertigo, Axyt-ct-Awfl, Otitis Media, Adult, [id number] Referrals: Chris Turner MD [Primary Care Provider] - Forms: ED Department Discharge Additional Instructions: The following information is given to patients seen in the emergency department who are being discharged to home. This information is to outline your options for follow-up care. We provide all patients seen in our emergency department with a follow-up referral. The need for follow-up, as well as the timing and circumstances, are variable depending upon the specifics of your emergency department visit. If you don't have a primary care physician on staff, we will provide you with a referral. We always advise you to contact your personal physician following an emergency department visit to inform them of the circumstance of the visit and for follow-up with them and/or the need for any referrals to a consulting specialist. The emergency department will also refer you to a specialist when appropriate. This referral assures that you have the opportunity for follow-up care with a specialist. All of these measure are taken in an effort to provide you with optimal care, which includes your follow-up. Under all circumstances we always encourage you to contact your private physician who remains a resource for coordinating your care. When calling for follow-up care, please make the office aware that this follow-up is from your recent emergency room visit. If for any reason you are refused follow-up, please contact the [facility] Emergency Department at and asked to speak to the emergency department charge nurse. [facility] [address] [place] [address] [facility] [address] [place] [id number] 1. Stop taking Keflex as prescribed and start Augmentin for ear infection as discussed. Take meclizine as prescribed to you as needed for vertigo symptoms. 2. Follow-up with your primary care provider as discussed. Return to the ED as needed and as discussed. Sepsis Event Note (ED) - Evaluation Sepsis Screening Result: No Definite Risk - Focused Exam Vital Signs: Vital Signs Temp Pulse Resp BP Pulse Ox 12/14/20 22:53 60 20 131/90 97 12/14/20 19:00 60 20 166/87 H 97 12/14/20 18:00 60 20 181/91 H 96 12/14/20 17:00 62 20 171/96 H 97 12/14/20 16:00 66 18 168/92 H 96 12/14/20 15:00 66 18 165/80 H 96 12/14/20 14:07 95.6 F L 70 18 168/87 H 95 - My Orders Last 24 Hours: My Active Orders 12/14/20 14:05 Saline Lock Insert [OM.PC] Stat - Assessment/Plan Last 24 Hours: My Active Orders 12/14/20 14:05 Saline Lock Insert [OM.PC] Stat
[2020-12-14] MEDS ORDERED: LORazepam 2 MG/ML SDV IVPUSH ONE (15:15)
[2020-12-14] MEDS ORDERED: Ketorolac 30 MG/ML SDV IVPUSH ONE (15:49)
[2020-12-14] MEDS ORDERED: Scopolamine 1.5 MG Transdermal Patch TRDERM STA (17:01)
[2020-12-14 19:02] VITALS: PULSE 60
[2020-12-14] MEDS ORDERED: Lactated Ringers 1,000 ML IV SCH (20:15)
--- NOTE | 2020-12-14 21:55 | CT ---
INDICATION: Vertigo and ataxia TECHNIQUE: CT head without contrast. COMPARISON: None. FINDINGS: CSF spaces: Within normal limits for age. Brain parenchyma: The bustos-white differentiation is normal. No sign of mass, hemorrhage, or midline shift. Skull base and calvarium: The visualized paranasal sinuses and mastoid air cells demonstrate no acute or significant findings. The visualized orbits are grossly unremarkable. No skull fractures. Atherosclerosis. IMPRESSION: Unremarkable noncontrast head CT. Please note that all CT scans at this facility use dose modulation, iterative reconstruction, and/or weight-based dosing when appropriate to reduce radiation dose to as low as reasonably achievable. Dictated by Moshe Manley MD @ 12/14/2020 9:54:43 PM (Electronically Signed)
--- NOTE | 2020-12-14 22:01 | CT ---
INDICATION: Vertigo, ataxia. TECHNIQUE: CTA head with contrast bolus tracking and 3D MIP reconstruction. FINDINGS: Calcified plaque is present around the carotid siphons. There is no significant intracranial stenosis. There is no large vessel occlusion. No aneurysm is identified. IMPRESSION: No large vessel occlusion. Please note that all CT scans at this facility use dose modulation, iterative reconstruction, and/or weight-based dosing when appropriate to reduce radiation dose to as low as reasonably achievable. Dictated by Rubén Rodriguez MD @ 12/14/2020 10:44:12 PM (Electronically Signed)
--- NOTE | 2020-12-14 22:01 | CT ---
INDICATION: Vertigo, ataxia. TECHNIQUE: CTA neck with contrast bolus tracking and 3D MIP reconstruction. FINDINGS: There is atherosclerotic plaque in the proximal internal carotid arteries bilaterally. There is mild stenosis on both sides, less than 50 percent by NASCET criteria. There is no significant vertebral artery stenosis or dissection. IMPRESSION: Mild bilateral ICA stenoses, less than 50 percent by NASCET criteria. Please note that all CT scans at this facility use dose modulation, iterative reconstruction, and/or weight-based dosing when appropriate to reduce radiation dose to as low as reasonably achievable. Dictated by Rubén Rodriguez MD @ 12/14/2020 10:47:13 PM (Electronically Signed)
[2020-12-14] MEDS ORDERED: Iopamidol 755 MG/ML 500 ML Multipack Bottle IVPUSH ONE (22:40)
[2020-12-14 22:53] VITALS: BP 131/90
== END 2020-12-14 22:53 | disposition home or self-care (01) ==
LOC: MW.ED 13:50
DX: H66.91 Otitis media, unspecified, right ear (principal); K21.9 Gastro-esophageal reflux disease without esophagitis; E66.9 Obesity, unspecified; I10 Essential (primary) hypertension; Z88.8 Allergy status to other drugs, medicaments and biological substances; Z91.040 Latex allergy status; Z79.899 Other long term (current) drug therapy; Z68.39 Body mass index [BMI] 39.0-39.9, adult
CPT/HCPCS: 36415; 70450; 70496; 70498; 71045; 80053; 84484; 85025; 93005; 96374; 96375; 99284; A9270; J1885; J2060; J2405; J7120; Q9967